=== PATIENT | male | born 1950 | race Caucasian/White ===

== ENCOUNTER 2016-07-08 07:20 | Inpatient (IN) | payer MEDICARE, MEDICAID ==
[~2016-07-08] VITALS: Ht 167.6 cm; Wt 64.2 kg
[2016-07-08] MEDS ORDERED: LABE100T2 PO (07:55)
[2016-07-08] MEDS ORDERED: PERC10TA27 PO (07:55)
[2016-07-08] MEDS ORDERED: COUM5TAB PO (07:55)
[2016-07-08] MEDS ORDERED: AMLO10 PO (07:55)
[2016-07-08] MEDS ORDERED: POLY17S PO (07:55)
[2016-07-08] MEDS ORDERED: NEUR300C PO (07:55)
[2016-07-08] MEDS ORDERED: TRAZ1TAB45 PO (07:55)
[2016-07-08] MEDS ORDERED: VITA250T3 PO (07:55)
[2016-07-08] MEDS ORDERED: PAXI30TA7 PO (07:55)
[2016-07-08] MEDS ORDERED: MULTTAB67 PO (07:55)
[2016-07-08] MEDS ORDERED: CHLORHEXIDINE GLUCONATE 2 % 1 PACK (2 CLOTHS) TOPICAL PRN (08:00)
[2016-07-08] MEDS ORDERED: LACTATED RINGER'S 1000 ML IV PRN (08:00)
[2016-07-08] MEDS ORDERED: POVIDONE IODINE 5% (ANTISEPSIS KIT) 4 APPLICATIONS EACH NARE PRN (08:00)
[2016-07-08] MEDS ORDERED: SODIUM CHLORID 0.9% 500 ML IV PRN (08:00)
[2016-07-08] MEDS ORDERED: INSULIN HUMAN REGULAR 1,000 UNITS/10 ML VIAL SQ PRN (08:00)
[2016-07-08] MEDS ORDERED: METOPROLOL TARTRATE 25 MG TAB PO PRN (08:00)
[2016-07-08 08:02] VITALS: BP 136/71; PULSE 52; RESP 16; TEMP 97.5; O2SAT 94
[2016-07-08 08:10] LABS: AUTOMATED NEUTROPHIL # 6.3 TH/MM3 (1.8-7.7); BASOPHIL # 0.1 TH/MM3 (0-0.2); BASOPHIL % 1.1 % (0.0-2.0); EOSINOPHIL # 0.5 TH/MM3 (0-0.4); EOSINOPHIL % 5.2 % (0.0-4.0); HEMATOCRIT 43.1 % (39.0-51.0); HEMO FLAGS DIFF FINAL; LYMPHOCYTE # 2.2 TH/MM3 (1.0-4.8); MEAN CELL VOLUME 90.2 FL (80.0-100.0); MEAN CORPUSCULAR HEMOGLOBIN 31.4 PG (27.0-34.0); MEAN CORPUSCULAR HGB CONC 34.9 % (32.0-36.0); MONO % 6.3 % (0.0-8.0); NEUT % 64.4 % (16.0-70.0); PLATELET COUNT 205 TH/MM3 (150-450); RED BLOOD COUNT 4.79 MIL/MM3 (4.50-5.90); RED CELL DISTRIBUTION WIDTH 12.7 % (11.6-17.2); WHITE BLOOD COUNT 9.7 TH/MM3 (4.0-11.0)
--- NOTE | 2016-07-08 08:13 | RADRPT ---
EXAM DATE/TIME: 07/08/2016 07:35 [facility] COMPARISON: No previous studies available for comparison. INDICATIONS : Evaluate for pneumothorax, pneumonia, or communicable disease. Pre-operative for left below knee revi cornelio. MEDICAL HISTORY : None. SURGICAL HISTORY : CABG. ENCOUNTER: Initial ACUITY: 1 day PAIN SCORE: 0/10 LOCATION: Bilateral chest FINDINGS: A single view of the chest demonstrates elevation right hemidiaphragm and minimal bibasilar atelectas is. Previous CABG. Heart in the upper limits of normal in size.. Osseous structures are intact. CONCLUSION: Bibasilar atelectasis and slight elevation right hemidiaphragm. Christopher Ferrell MD on July 08, 2016 at 8:11 Board Certified Radiologist. This report was verified electronically.
[2016-07-08] MEDS ORDERED: ceFAZolin 2 GM PREMIX 50 ML IV SCH (08:15)
[2016-07-08 08:21] LABS: INTERNATIONAL NORMALIZED RATIO 1.6 RATIO; PROTHROMBIN TIME - PATIENT 17.6 SEC (9.8-11.6)
[2016-07-08 08:23] LABS: APTT (PATIENT) 37.4 SEC (24.3-30.1)
[2016-07-08 08:27] LABS: BICARBONATE 27.4 MEQ/L (21.0-32.0)
[2016-07-08] MEDS ORDERED: PROPOFOL 200 MG/20 ML AMP IV ONE (12:00)
[2016-07-08] MEDS ORDERED: ONDANSETRON HCL 4 MG/2 ML VIAL IV PUSH ONE (12:00)
[2016-07-08] MEDS ORDERED: ePHEDrine/NS 25 MG/5 ML SYR IV ONE (12:00)
[2016-07-08] MEDS ORDERED: ACETAMINOPHEN 1000 MG/100 ML VIAL IV ONE (12:07)
[2016-07-08] MEDS ORDERED: DEXAMETHASONE SOD PHOS 4 MG/ML VIAL ONE (12:08)
[2016-07-08] MEDS ORDERED: FAMOTIDINE 20 MG/2 ML VIAL ONE (12:08)
[2016-07-08] MEDS ORDERED: fentaNYL CITRATE 250 MCG/5 ML AMP ONE (12:08)
[2016-07-08] MEDS ORDERED: MIDAZOLAM HCL 2 MG/2 ML VIAL ONE (12:08)
[2016-07-08] MEDS ORDERED: DO NOT ADM ANY ANTICOAGULANT DRUGS PRN (13:47)
[2016-07-08] MEDS ORDERED: *morphine SULFATE 8 MG/ML PERIprocedure ONLY ONE ×2 (14:00→14:10)
[2016-07-08] MEDS ORDERED: *HYDROmorphone PF 1 MG VIAL PERIprocedural Use ONLY ONE ×2 (14:28→15:32)
[2016-07-08] MEDS ORDERED: ONDANSETRON HCL 4 MG/2 ML VIAL IV PRN (15:45)
[2016-07-08] MEDS ORDERED: NALOXONE HCL 0.4 MG/ML AMP IV PRN (15:45)
[2016-07-08] MEDS ORDERED: Post-op Orders (for Pharmacy) MISC XX ONE (15:45)
--- NOTE | 2016-07-08 16:33 | EKG ---
Date Performed: 07/08/2016 Time Performed: 08:02:21 PTAGE: 66 years EKG: SINUS BRADYCARDIA RIGHT BUNDLE BRANCH BLOCK ABNORMAL ECG NO PREVIOUS TRACING DOCTOR: Kt Smalls Interpretating Date/Time 07/08/2016 16:32:06
[2016-07-08] MEDS ORDERED: PILL SPLITTER OTHER PRN (16:45)
[2016-07-08 17:00] VITALS: BP 136/68; PULSE 71; RESP 20; TEMP 97.3; O2SAT 95
[2016-07-08] MEDS: POLYETHYLENE GLYCOL 17 GM PKG PO SCH (17:00)
--- NOTE | 2016-07-08 18:11 | MP ---
cc: MD JULIA,GAGE DATE OF SURGERY 07/08/2016 PREOPERATIVE DIAGNOSIS Ischemia of the skin of the left BKA stump. Atrophy of the muscle of the stump, inability to wear prosthesis. POSTOPERATIVE DIAGNOSIS Ischemia of the skin of the left BKA stump. Atrophy of the muscle of the stump, inability to wear prosthesis. OPERATIVE PROCEDURE Revision of the stump, re-resection of tibia and fibula and creation of posterior flap. SURGEON MD Julia ANESTHESIA General. ESTIMATED BLOOD LOSS 100 cc. INDICATION OF PROCEDURE This pleasant gentleman presents to my office with a stump that is the result of left below-knee amputation about a year ago in another hospital. At this point the patient has near protrusion of the tibia through the anterior and superior portion of the stump, cannot wear a prosthesis and clearly muscle is atrophic and insufficient to bear the stump weight, hence the procedure. PROCEDURE IN DETAIL The patient was prepped and draped in usual fashion. Now incision made in the site of the previous incision inferiorly and then extended laterally. This allowed exposure of tibia and fibula. Laterally the incision is deepened and anteriorly to the level of tibia and then tissue over the tibia is peeled back with periosteal elevator anteriorly and laterally and then in the end inferiorly. The fibula is now exposed, same is done with fibula. The fibula is foreshortened for about 3 inches with the asphalt distributor operator and then the tibia is transected about 2 inches higher with oscillating saw, then angled. It is rasped down with bone rasp and then area irrigated saline. Now the posterior flap is created. Posterior flap is created by advancing the tissue that was inferior to the tibia previously anteriorly and then some tissue that was around the fibula medially over the tibia. First the muscle tissue is advanced medially and the tibia is covered and this is sutured in with 0 Vicryl. Now the tissue is advanced from inferiorly up and sutured fascia to fascia with a layer of deep stitches and a layer of superficial stitches using a 0 Vicryl and 2-0 Vicryl respectively. Finally, the skin is closed with 3-0 interrupted Prolene. The patient tolerated the procedure well and dressing applied. Gage CM /4:30 PM /5:55 PM MTDYakelin
[2016-07-08] MEDS: WARFARIN SOD 1 MG TAB PO SCH (18:12)
[2016-07-08] MEDS: WARFARIN SOD 5 MG TAB PO SCH (18:12)
[2016-07-08] MEDS: SODIUM CHLOR 0.9% 1000 ML INJ 1,000 ML IV SCH (18:12)
[2016-07-08] MEDS: PARoxetine HCL 20 MG TAB PO SCH (18:13)
[2016-07-08] MEDS: MULTIVITAMIN TAB PO SCH (18:13)
[2016-07-08 18:16] VITALS: O2SAT 95
[2016-07-08] MEDS: oxyCODONE/ACETAMINOPHEN 5 MG/325 MG TAB PO PRN (19:12)
[2016-07-08 20:00] VITALS: BP 137/76; PULSE 61; RESP 20; TEMP 96.4; O2SAT 95
[2016-07-08] MEDS: traZODone HCL 50 MG TAB PO SCH (20:16)
[2016-07-08] MEDS: DOCUSATE SODIUM 100 MG CAP PO SCH (20:16)
[2016-07-08] MEDS: SODIUM CHLORIDE 0.9% FLUSH 10 ML FLUSH IV FLUSH SCH (20:16)
[2016-07-08] MEDS: GABAPENTIN 300 MG CAP PO SCH (20:16)
[2016-07-08] MEDS: LABETALOL HCL 100 MG TAB PO SCH (20:16)
[2016-07-08] MEDS: ASCORBIC ACID 500 MG TAB PO SCH (20:16)
[2016-07-08] MEDS: oxyCODONE/ACETAMINOPHEN 10 MG/325 MG TAB PO SCH (22:10)
[2016-07-09] VITALS (8 sets, daily range): BP systolic 120–140; BP diastolic 64–76; PULSE 55–84; RESP 16–20; TEMP 95.9–97.8; O2SAT 93–97
[2016-07-09] MEDS: HYDROmorphone HCL PF 1 MG/ML VIAL IV PRN (01:15)
[2016-07-09] MEDS: oxyCODONE/ACETAMINOPHEN 10 MG/325 MG TAB PO SCH ×3 (05:19→20:50)
[2016-07-09 05:27] LABS: BASOPHIL % 0.3 % (0.0-2.0); HEMATOCRIT 36.5 % (39.0-51.0); HEMO FLAGS DIFF FINAL; LYMPHOCYTE # 0.8 TH/MM3 (1.0-4.8); MEAN CELL VOLUME 91.1 FL (80.0-100.0); MEAN CORPUSCULAR HGB CONC 35.1 % (32.0-36.0); NEUT % 85.7 % (16.0-70.0); PLATELET COUNT 186 TH/MM3 (150-450); RED BLOOD COUNT 4.01 MIL/MM3 (4.50-5.90); RED CELL DISTRIBUTION WIDTH 12.7 % (11.6-17.2); WHITE BLOOD COUNT 9.3 TH/MM3 (4.0-11.0)
[2016-07-09 05:40] LABS: BICARBONATE 26.7 MEQ/L (21.0-32.0); POTASSIUM 4.5 MEQ/L (3.5-5.1)
[2016-07-09] MEDS: ASCORBIC ACID 500 MG TAB PO SCH ×2 (08:14→20:33)
[2016-07-09] MEDS: DOCUSATE SODIUM 100 MG CAP PO SCH ×2 (08:14→20:33)
[2016-07-09] MEDS: LABETALOL HCL 100 MG TAB PO SCH ×2 (08:15→20:33)
[2016-07-09] MEDS: PARoxetine HCL 20 MG TAB PO SCH (08:15)
[2016-07-09] MEDS: MULTIVITAMIN TAB PO SCH (08:15)
[2016-07-09] MEDS: POLYETHYLENE GLYCOL 17 GM PKG PO SCH (08:15)
[2016-07-09] MEDS: GABAPENTIN 300 MG CAP PO SCH ×2 (08:15→20:33)
[2016-07-09] MEDS: SODIUM CHLORIDE 0.9% FLUSH 10 ML FLUSH IV FLUSH SCH ×2 (08:15→20:33)
[2016-07-09] MEDS: oxyCODONE/ACETAMINOPHEN 5 MG/325 MG TAB PO PRN ×3 (08:17→20:34)
--- NOTE | 2016-07-09 11:30 | PD.CAR.PN ---
CVT Progress Note Subjective/Hospital Course: 07/09/16 Status post revision of the left BKA stump Incision is clean and dry dressing is intact We will leave the dressing as it is for next 24-48 hours and then remove it Patient should be able to leave the hospital Monday or Monday Continue care Objective: Vital Signs Date Time Temp Pulse Resp B/P Pulse Ox O2 Delivery O2 Flow Rate FiO2 07/09/16 09:17 16 07/09/16 08:00 97.1 66 17 133/64 93 07/09/16 04:00 95.9 67 20 130/76 96 07/09/16 00:00 96.0 69 20 120/68 95 07/08/16 20:00 96.4 61 20 137/76 95 07/08/16 18:16 95 Nasal Cannula 4.00 07/08/16 17:00 97.3 71 20 136/68 95 07/08/16 15:45 67 16 145/58 96 Nasal Cannula 4 07/08/16 15:30 65 16 131/63 95 Nasal Cannula 4 07/08/16 15:15 65 16 134/71 95 Nasal Cannula 4 07/08/16 15:00 62 16 130/62 96 Nasal Cannula 4 07/08/16 14:45 66 16 133/67 94 Nasal Cannula 4 07/08/16 14:30 61 16 130/66 95 Nasal Cannula 4 07/08/16 14:15 61 16 136/69 95 Nasal Cannula 4 07/08/16 13:53 97.5 62 16 147/70 96 Simple Mask 10 Labs: Laboratory Tests Test 07/09/16 04:24 White Blood Count 9.3 TH/MM3 (4.0-11.0) Red Blood Count 4.01 MIL/MM3 (4.50-5.90) Hemoglobin 12.8 GM/DL (13.0-17.0) Hematocrit 36.5 % (39.0-51.0) Mean Corpuscular Volume 91.1 FL (80.0-100.0) Mean Corpuscular Hemoglobin 32.0 PG (27.0-34.0) Mean Corpuscular Hemoglobin 35.1 % Concent (32.0-36.0) Red Cell Distribution Width 12.7 % (11.6-17.2) Platelet Count 186 TH/MM3 (150-450) Mean Platelet Volume 6.6 FL (7.0-11.0) Neutrophils (%) (Auto) 85.7 % (16.0-70.0) Lymphocytes (%) (Auto) 9.0 % (9.0-44.0) Monocytes (%) (Auto) 5.0 % (0.0-8.0) Eosinophils (%) (Auto) 0.0 % (0.0-4.0) Basophils (%) (Auto) 0.3 % (0.0-2.0) Neutrophils # (Auto) 8.0 TH/MM3 (1.8-7.7) Lymphocytes # (Auto) 0.8 TH/MM3 (1.0-4.8) Monocytes # (Auto) 0.5 TH/MM3 (0-0.9) Eosinophils # (Auto) 0.0 TH/MM3 (0-0.4) Basophils # (Auto) 0.0 TH/MM3 (0-0.2) CBC Comment DIFF FINAL Differential Comment Sodium Level 143 MEQ/L (136-145) Potassium Level 4.5 MEQ/L (3.5-5.1) Chloride Level 108 MEQ/L (98-107) Carbon Dioxide Level 26.7 MEQ/L (21.0-32.0) Anion Gap 8 MEQ/L (5-15) Blood Urea Nitrogen 19 MG/DL (7-18) Creatinine 1.18 MG/DL (0.60-1.30) Estimat Glomerular Filtration 62 ML/MIN (>89) Rate Random Glucose 157 MG/DL (74-106) Calcium Level 8.7 MG/DL (8.5-10.1) Result Diagram: 07/09/16 0424 07/09/16 0424 Semaj Dumont MD July 09, 2016 11:30
[2016-07-09] MEDS: SODIUM CHLOR 0.9% 1000 ML INJ 1,000 ML IV SCH ×2 (12:04→20:36)
[2016-07-09] MEDS: WARFARIN SOD 1 MG TAB PO SCH (17:39)
[2016-07-09] MEDS: WARFARIN SOD 5 MG TAB PO SCH (17:39)
[2016-07-09] MEDS: traZODone HCL 50 MG TAB PO SCH (20:34)
[2016-07-10] VITALS: BP 131/64; PULSE 53; RESP 20; TEMP 96.9; O2SAT 97
[2016-07-10] MEDS: oxyCODONE/ACETAMINOPHEN 5 MG/325 MG TAB PO PRN ×2 (04:28→09:26)
[2016-07-10] MEDS: oxyCODONE/ACETAMINOPHEN 10 MG/325 MG TAB PO SCH ×3 (05:41→22:54)
[2016-07-10 08:00] VITALS: BP 132/66; PULSE 51; RESP 17; TEMP 96.1; O2SAT 96
[2016-07-10] MEDS: SODIUM CHLORIDE 0.9% FLUSH 10 ML FLUSH IV FLUSH SCH ×2 (09:00→19:59)
[2016-07-10] MEDS: PARoxetine HCL 20 MG TAB PO SCH (09:15)
[2016-07-10] MEDS: POLYETHYLENE GLYCOL 17 GM PKG PO SCH (09:15)
[2016-07-10] MEDS: DOCUSATE SODIUM 100 MG CAP PO SCH ×2 (09:15→19:59)
[2016-07-10] MEDS: LABETALOL HCL 100 MG TAB PO SCH ×2 (09:15→20:00)
[2016-07-10] MEDS: MULTIVITAMIN TAB PO SCH (09:15)
[2016-07-10] MEDS: ASCORBIC ACID 500 MG TAB PO SCH ×2 (09:15→20:00)
[2016-07-10] MEDS: GABAPENTIN 300 MG CAP PO SCH ×2 (09:15→20:00)
[2016-07-10 10:04] VITALS: O2SAT 96
[2016-07-10 12:00] VITALS: BP 112/57; PULSE 50; RESP 17; TEMP 96.3; O2SAT 94
[2016-07-10] MEDS: SODIUM CHLORIDE 0.9% FLUSH 10 ML FLUSH IV FLUSH PRN ×2 (13:17→18:01)
[2016-07-10] MEDS: HYDROmorphone HCL PF 1 MG/ML VIAL IV PRN ×2 (13:17→17:59)
[2016-07-10 16:00] VITALS: BP 118/57; PULSE 50; RESP 17; TEMP 96.4; O2SAT 95
[2016-07-10] MEDS: WARFARIN SOD 5 MG TAB PO SCH (17:22)
[2016-07-10] MEDS: WARFARIN SOD 1 MG TAB PO SCH (17:22)
[2016-07-10] MEDS: SODIUM CHLOR 0.9% 1000 ML INJ 1,000 ML IV SCH (18:01)
[2016-07-10 20:00] VITALS: BP 115/59; PULSE 50; RESP 18; TEMP 96; O2SAT 93
[2016-07-10] MEDS: traZODone HCL 50 MG TAB PO SCH (20:00)
[2016-07-11] VITALS (7 sets, daily range): BP systolic 113–128; BP diastolic 58–62; PULSE 48–56; RESP 16–18; TEMP 95.9–97.1; O2SAT 95–97
[2016-07-11] MEDS: oxyCODONE/ACETAMINOPHEN 10 MG/325 MG TAB PO SCH ×3 (04:58→20:33)
[2016-07-11] MEDS: SODIUM CHLORIDE 0.9% FLUSH 10 ML FLUSH IV FLUSH SCH ×2 (09:00→20:26)
[2016-07-11] MEDS: POLYETHYLENE GLYCOL 17 GM PKG PO SCH (09:37)
[2016-07-11] MEDS: MULTIVITAMIN TAB PO SCH (09:37)
[2016-07-11] MEDS: DOCUSATE SODIUM 100 MG CAP PO SCH ×2 (09:37→20:29)
[2016-07-11] MEDS: LABETALOL HCL 100 MG TAB PO SCH ×3 (09:37→21:00)
[2016-07-11] MEDS: ASCORBIC ACID 500 MG TAB PO SCH ×2 (09:37→20:33)
[2016-07-11] MEDS: oxyCODONE/ACETAMINOPHEN 5 MG/325 MG TAB PO PRN ×2 (09:37→17:34)
[2016-07-11] MEDS: GABAPENTIN 300 MG CAP PO SCH ×2 (09:37→20:31)
[2016-07-11] MEDS: PARoxetine HCL 20 MG TAB PO SCH (09:37)
[2016-07-11] MEDS: SODIUM CHLOR 0.9% 1000 ML INJ 1,000 ML IV SCH (09:44)
[2016-07-11] MEDS: HYDROmorphone HCL PF 1 MG/ML VIAL IV PRN ×2 (11:22→19:49)
[2016-07-11] MEDS: SODIUM CHLORIDE 0.9% FLUSH 10 ML FLUSH IV FLUSH PRN (11:22)
--- NOTE | 2016-07-11 12:19 | PD.CAR.PN ---
CVT Progress Note Subjective/Hospital Course: 07/09/16 Status post revision of the left BKA stump Incision is clean and dry dressing is intact We will leave the dressing as it is for next 24-48 hours and then remove it Patient should be able to leave the hospital Monday or Monday Continue care 07/11/16 Incision clean dry Well healing Can transfer to rehab any time No more intrahospital care needed Objective: Vital Signs Date Time Temp Pulse Resp B/P Pulse Ox O2 Delivery O2 Flow Rate FiO2 07/11/16 10:37 16 07/11/16 08:00 96.6 48 16 128/61 96 07/11/16 00:00 97.1 56 18 122/62 95 07/10/16 20:00 96.0 50 18 115/59 93 07/10/16 18:11 Nasal Cannula 3.00 07/10/16 16:00 96.4 50 17 118/57 95 Result Diagram: 07/09/16 0424 07/09/16 0424 Semaj Dumont MD July 11, 2016 12:19
[2016-07-11] MEDS: WARFARIN SOD 5 MG TAB PO SCH (14:51)
[2016-07-11] MEDS: WARFARIN SOD 1 MG TAB PO SCH (14:51)
[2016-07-11] MEDS: traZODone HCL 50 MG TAB PO SCH (20:31)
[2016-07-12] VITALS: BP 117/58; PULSE 50; RESP 18; TEMP 96.9; O2SAT 97
[2016-07-12] MEDS: oxyCODONE/ACETAMINOPHEN 5 MG/325 MG TAB PO PRN ×3 (01:51→18:41)
[2016-07-12] MEDS: SODIUM CHLOR 0.9% 1000 ML INJ 1,000 ML IV SCH ×2 (03:36→20:00)
[2016-07-12] MEDS: HYDROmorphone HCL PF 1 MG/ML VIAL IV PRN (03:36)
[2016-07-12] MEDS: oxyCODONE/ACETAMINOPHEN 10 MG/325 MG TAB PO SCH ×2 (05:52→15:02)
[2016-07-12 08:00] VITALS: BP 111/56; PULSE 51; RESP 17; TEMP 97.6; O2SAT 94
[2016-07-12] MEDS: ASCORBIC ACID 500 MG TAB PO SCH (08:22)
[2016-07-12] MEDS: GABAPENTIN 300 MG CAP PO SCH (08:22)
[2016-07-12] MEDS: DOCUSATE SODIUM 100 MG CAP PO SCH (08:22)
[2016-07-12] MEDS: SODIUM CHLORIDE 0.9% FLUSH 10 ML FLUSH IV FLUSH SCH (08:23)
[2016-07-12] MEDS: MULTIVITAMIN TAB PO SCH (08:23)
[2016-07-12] MEDS: PARoxetine HCL 20 MG TAB PO SCH (08:23)
[2016-07-12] MEDS: POLYETHYLENE GLYCOL 17 GM PKG PO SCH (08:23)
[2016-07-12] MEDS: LABETALOL HCL 100 MG TAB PO SCH (09:00)
[2016-07-12 12:00] VITALS: BP 133/66; PULSE 51; RESP 18; TEMP 97.4; O2SAT 96
--- NOTE | 2016-07-12 12:45 | PD.CAR.PN ---
CVT Progress Note Subjective/Hospital Course: 07/09/16 Status post revision of the left BKA stump Incision is clean and dry dressing is intact We will leave the dressing as it is for next 24-48 hours and then remove it Patient should be able to leave the hospital Monday or Monday Continue care 07/11/16 Incision clean dry Well healing Can transfer to rehab any time No more intrahospital care needed 07/12/16 Well healing No drainage DC to rehab FU with me 3 weeks in the office Objective: Vital Signs Date Time Temp Pulse Resp B/P Pulse Ox O2 Delivery O2 Flow Rate FiO2 07/12/16 08:00 97.6 51 17 111/56 94 07/12/16 00:00 96.9 50 18 117/58 97 07/11/16 20:00 97.0 50 18 113/59 95 07/11/16 19:53 95 Nasal Cannula 3.00 07/11/16 16:00 96.3 48 17 121/58 96 07/11/16 15:51 16 Result Diagram: 07/09/16 0424 07/09/16 0424 Semaj Dumont MD July 12, 2016 12:45
[2016-07-12 12:49] VITALS: O2SAT 96
[2016-07-12] MEDS ORDERED: OXYC1TAB36 PO (15:27)
[2016-07-12 16:00] VITALS: BP 139/64; PULSE 58; RESP 17; TEMP 97.6; O2SAT 97
[2016-07-12] MEDS: WARFARIN SOD 1 MG TAB PO SCH (16:02)
[2016-07-12] MEDS: WARFARIN SOD 5 MG TAB PO SCH (16:03)
--- NOTE | 2016-07-27 18:25 | MH ---
cc: SEMAJ EMMANUEL MD DATE OF ADMISSION 07/08/2016 HISTORY OF THE PRESENT ILLNESS This pleasant gentleman had a BKA amputation at some point in the distant in another institution. The patient comes to my office with atrophy of the muscle and essentially ulceration over the tibial stump which is almost protruding through the skin at this point. There is a very thin amount of tissue covering. This patient is unable to walk on this. The patient is now admitted for revision of the stump in order to allow for walking. PAST MEDICAL AND SURGICAL HISTORY Is that of: 1. Diabetes mellitus. 2. Hypertension. MEDICATIONS The patient is on the number medications, can be found in the record. PHYSICAL EXAMINATION GENERAL: Reveals a pleasant 66-year-old gentleman in no acute distress. HEENT: Normocephalic. No trauma to the head. Pupils equally reactive. Extraocular muscles intact. NECK: Supple. Bilateral carotid pulses. No bruits. CHEST: Bilateral breath sounds. HEART: Regular rhythm. ABDOMEN: Soft. Active bowel sounds. EXTREMITIES: Right leg is normal. On the left side the patient has left below-knee amputation with nearly protruding bone being covered only by a small amount of tissue. NEUROLOGIC: The patient is intact. The patient has a plan to be taken to the operating room today for revision of the stump. It should be noted that this H&P was performed on short-form prior to surgery as per regulations for the patient could not be taken to the operating room without it. Yet this short form was lost and that is why I am re-dictating history and physical. Semaj WISE/ISABELLE /3:45 PM /6:15 PM
--- NOTE | 2016-07-28 06:37 | MD ---
cc: ESMAJ EMMANUEL MD ADMISSION DATE: 07/08/2016 DISCHARGE DATE: 07/12/2016 HISTORY OF PRESENT DISEASE This 66-year-old male was admitted for revision of the left BKA stump. HOSPITAL COURSE He underwent successful revision of the same in the operating room and postoperatively did well. The incision is healing nicely. Dressing has been removed 48 hours after the procedure and the patient is now made discharged with instructions to follow up in my office in about three weeks for stitch removal with a clean well-healing stump without ischemia. Semaj WISE/ZAKIA /3:48 PM /6:36 AM
== END 2016-07-12 21:23 | DRG 476 ==
LOC: HSDC 07:20 → HSDI 15:38 → N07B 15:46
PROVIDERS: ADMIT Surgery; ATTEND Surgery
PROC: 0Y6J0Z3 Detachment at Left Lower Leg, Low, Open Approach (ICD-10-PCS; principal; 2016-07-08 12:29)
DX: T87.89 Other complications of amputation stump (principal); I25.10 Atherosclerotic heart disease of native coronary artery without angina pectoris; I99.8 Other disorder of circulatory system; M62.58 Muscle wasting and atrophy, not elsewhere classified, other site; I73.9 Peripheral vascular disease, unspecified; Z95.1 Presence of aortocoronary bypass graft; Z87.891 Personal history of nicotine dependence
CPT/HCPCS: 71010; 80048; 85025; 85610; 85730; 93005; 94150; J0131; J0690; J1100; J1170; J2250; J2270; J2405; J3010; J7030

== ENCOUNTER 2017-02-18 11:08 | Emergency (ER) | payer MEDICARE, MEDICAID ==
[~2017-02-18] VITALS: Ht 167.6 cm; Wt 78.0 kg
[~2017-02-18 11:08] MED LIST: AMLO10 PO; COUM5TAB PO; LABE100T2 PO; MULTTAB67 PO; NEUR300C PO; OXYC1TAB36 PO; PAXI30TA7 PO; PERC10TA27 PO; POLY17S PO; TRAZ1TAB14 PO; VITA250T3 PO
[2017-02-18 11:35] VITALS: BP 145/67; PULSE 59; RESP 19; TEMP 98.2; O2SAT 89
[2017-02-18] MEDS ORDERED: PHYT10P SQ (11:49)
[2017-02-18] MEDS ORDERED: TRAZ50TA12 PO (11:49)
[2017-02-18] MEDS ORDERED: WARF-20 PO (11:49)
[2017-02-18] MEDS ORDERED: PERC10TA27 PO (11:49)
[2017-02-18] MEDS ORDERED: PARO20TA2 PO (11:49)
[2017-02-18 12:12] VITALS: RESP 18; O2SAT 94
[2017-02-18 12:22] LABS: AUTOMATED NEUTROPHIL # 7.5 TH/MM3 (1.8-7.7); BASOPHIL # 0.1 TH/MM3 (0-0.2); BASOPHIL % 0.8 % (0.0-2.0); EOSINOPHIL # 0.5 TH/MM3 (0-0.4); EOSINOPHIL % 5.2 % (0.0-4.0); HEMATOCRIT 41.1 % (39.0-51.0); LYMPH % 14.7 % (9.0-44.0); LYMPHOCYTE # 1.5 TH/MM3 (1.0-4.8); MEAN CELL VOLUME 91.4 FL (80.0-100.0); MEAN PLATELET VOLUME 6.2 FL (7.0-11.0); MONO % 7.1 % (0.0-8.0); MONOCYTE # 0.7 TH/MM3 (0-0.9); NEUT % 72.2 % (16.0-70.0); PLATELET COUNT 247 TH/MM3 (150-450); RED CELL DISTRIBUTION WIDTH 13.3 % (11.6-17.2); WHITE BLOOD COUNT 10.4 TH/MM3 (4.0-11.0)
--- NOTE | 2017-02-18 12:26 | PD ---
HPI Chief Complaint: Abnormal Results Time Seen by Provider: 11:42 Travel History International Travel<30 days: No Contact w/Intl Traveler<30days: No Traveled to known affect area: No History of Present Illness HPI 67-year-old male that presents to the ED for evaluation of supratherapeutic Coumadin level. Patient was sent from a left secondary to this. Per group home report patient apparently had a level done yesterday was 3.3. Today they checked it again and it was 11. They withheld the Coumadin yesterday and today and they gave him vitamin K and a run other lab but they sent him here before the the lab results came back. Patient states that he's been coughing up some brown sputum and he believes that his been having some blood in it. Per patient is only started today. He denies any chest pain. Per patient in the facility where he stays that his been a lot of sick people with cough like symptoms. He states that the blood is minimal and more like a droplets. He denies any fevers chills or sweats. He states having congestion. Per patient he believes is coming from the nose. He denies any nosebleed however. He denies any changes in bowel movement or discoloration of the blood to black or breath. He denies any urinary symptoms. 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 He denies any abdominal pain. No weakness. No numbness, tingling, weakness. He has no pain. PFSH Past Medical History Cancer: No Cardiovascular Problems: Yes (AAA) COPD: Yes Diabetes: No Diminished Hearing: No Endocrine: No GERD: Yes Genitourinary: No Hepatitis: No Hiatal Hernia: No Hypertension: Yes Immune Disorder: No Medical other: Yes (DVT) Musculoskeletal: Yes (BKA) Neurologic: No Psychiatric: No Reproductive: No Respiratory: Yes Thyroid Disease: No Influenza Vaccination: Yes Past Surgical History Abdominal Surgery: Yes AICD: No Cardiac Surgery: Yes (cabg 2010) Coronary Artery Bypass Graft: Yes (2010) Ear Surgery: No Endocrine Surgery: No Eye Surgery: No Genitourinary Surgery: No Joint Replacement: No Oral Surgery: No Pacemaker: No Thoracic Surgery: No Other Surgery: Yes Social History Alcohol Use: No Tobacco Use: No Substance Use: No Allergies-Medications (Allergen,Severity, Reaction): Coded Allergies: codeine (Unverified Allergy, Intermediate, 09/27/16) Reported Meds & Prescriptions Reported Meds & Active Scripts Active Tessalon Perles (Benzonatate) 100 Mg Cap 100 Mg PO TID PRN Azithromycin 250 Mg Tab 250 Mg PO DIRECTED Take 2 tabs (500 mg) on day 1 then 1 tab daily x 4 days. Reported Vitamin K1 Inj (Phytonadione) 10 Mg/Ml Inj 10 Mg SQ ONCE Percocet (Oxycodone-Acetaminophen) 10-325 mg Tab 1 Tab PO Q4H PRN Trazodone (Trazodone HCl) 50 Mg Tab 50 Mg PO HS Paroxetine (Paroxetine HCl) 20 Mg Tab 20 Mg PO DAILY Warfarin 4 Mg Tab 4.5 Mg PO DAILY Vitamin C (Ascorbic Acid) 250 Mg Tab 500 Mg PO BID Labetalol (Labetalol HCl) 100 Mg Tab 100 Mg PO BID Percocet (Oxycodone-Acetaminophen) 10-325 mg Tab 1 Tab PO Q8HR Norvasc (Amlodipine Besylate) 10 Mg Tab 10 Mg PO DAILY Neurontin (Gabapentin) 300 Mg Cap 300 Mg PO BID Multiple Vitamin 1 Tab 1 Tab PO DAILY Polyethylene Glycol 3350 Powder (Polyethylene Glycol) 17 Gm Pow 17 Gm PO DAILY Review of Systems Except as stated in HPI: all other systems reviewed are Neg Physical Exam Narrative GENERAL: SKIN: Warm and dry. HEAD: Atraumatic. Normocephalic. EYES: Pupils equal and round. No scleral icterus. No injection or drainage. ENT: No nasal bleeding or discharge. Mucous membranes pink and moist. Tongue is midline. No uvula deviation. Nostrils are patent with no sign of epistaxis. TMs are clear with no sign of infection. NECK: Trachea midline. No JVD. CARDIOVASCULAR: Regular rate and rhythm. No murmurs, S3, S4. RESPIRATORY: No accessory muscle use. Clear to auscultation. Breath sounds equal bilaterally. GASTROINTESTINAL: Abdomen soft, non-tender, nondistended. Hepatic and splenic margins not palpable. MUSCULOSKELETAL: Extremities without clubbing, cyanosis, or edema. No obvious deformities. Full range of motion of the upper and lower extremities bilaterally. 2+ pulses bilaterally. Above the knee amputation on left leg. NEUROLOGICAL: Awake and alert. No obvious cranial nerve deficits. Motor grossly within normal limits. Five out of 5 muscle strength in the arms and legs. Normal speech. PSYCHIATRIC: Appropriate mood and affect; insight and judgment normal. Data Data Last Documented VS Vital Signs Date Time Temp Pulse Resp B/P (MAP) Pulse Ox O2 Delivery O2 Flow Rate FiO2 02/18/17 12:12 18 94 Nasal Cannula 2.00 02/18/17 11:35 98.2 59 145/67 (93) Orders Orders Complete Blood Count With Diff (02/18/17 11:47) Comprehensive Metabolic Panel (02/18/17 11:47) Prothrombin Time / Inr (Pt) (02/18/17 11:47) Act Partial Throm Time (Ptt) (02/18/17 11:47) Magnesium (Mg) (02/18/17 11:47) Chest, Single Ap (02/18/17 11:47) Iv Access Insert/Monitor (02/18/17 11:47) Ecg Monitoring (02/18/17 11:47) Oximetry (02/18/17 11:47) Type And Screen (02/18/17 11:47) Influenzae A/B Antigen (02/18/17 11:47) Ceftriaxone Inj (Rocephin Inj) (02/18/17 13:00) Labs Laboratory Tests Test 02/18/17 12:08 White Blood Count 10.4 TH/MM3 Red Blood Count 4.50 MIL/MM3 Hemoglobin 14.0 GM/DL Hematocrit 41.1 % Mean Corpuscular Volume 91.4 FL Mean Corpuscular Hemoglobin 31.0 PG Mean Corpuscular Hemoglobin Concent 34.0 % Red Cell Distribution Width 13.3 % Platelet Count 247 TH/MM3 Mean Platelet Volume 6.2 FL Neutrophils (%) (Auto) 72.2 % Lymphocytes (%) (Auto) 14.7 % Monocytes (%) (Auto) 7.1 % Eosinophils (%) (Auto) 5.2 % Basophils (%) (Auto) 0.8 % Neutrophils # (Auto) 7.5 TH/MM3 Lymphocytes # (Auto) 1.5 TH/MM3 Monocytes # (Auto) 0.7 TH/MM3 Eosinophils # (Auto) 0.5 TH/MM3 Basophils # (Auto) 0.1 TH/MM3 CBC Comment DIFF FINAL Differential Comment Prothrombin Time 19.9 SEC Prothromb Time International Ratio 2.0 RATIO Activated Partial Thromboplast Time 44.2 SEC Blood Urea Nitrogen 20 MG/DL Creatinine 1.30 MG/DL Random Glucose 104 MG/DL Total Protein 8.6 GM/DL Albumin 3.4 GM/DL Calcium Level 8.8 MG/DL Magnesium Level 2.4 MG/DL Alkaline Phosphatase 83 U/L Aspartate Amino Transf (AST/SGOT) 10 U/L Alanine Aminotransferase (ALT/SGPT) 16 U/L Total Bilirubin 0.5 MG/DL Sodium Level 141 MEQ/L Potassium Level 3.8 MEQ/L Chloride Level 106 MEQ/L Carbon Dioxide Level 27.8 MEQ/L Anion Gap 7 MEQ/L Estimat Glomerular Filtration Rate 55 ML/MIN MDM Medical Decision Making Medical Screen Exam Complete: Yes Emergency Medical Condition: Yes Medical Record Reviewed: Yes Interpretation(s) CBC & BMP Diagram 02/18/17 12:08 Total Protein 8.6 H, Albumin 3.4, Calcium Level 8.8, Magnesium Level 2.4, Alkaline Phosphatase 83, Aspartate Amino Transf (AST/SGOT) 10 L, Alanine Aminotransferase (ALT/SGPT) 16, Total Bilirubin 0.5 coags show INR of 2 Last Impressions Chest X-Ray 02/18/17 1147 Signed Impressions: Service Date/Time: Monday, February 18, 2017 12:05 - CONCLUSION: Bibasilar patchiness consistent with atelectasis and/or infiltrates. Holger Bell MD Differential Diagnosis Bronchitis versus pneumonia versus bleeding versus Coumadin elevated level Narrative Course 67-year-old male that presents to the ED for evaluation of coughing blood and supratherapeutic Coumadin level. Labs and imaging were ordered. Patient's Coumadin level here was 2.0. Patient apparently had a blood test that showed that he had an 11 point Coumadin level. Patient had a 3.3 level yesterday. Patient was given vitamin K but unlikely this brought down the level so fast. I do believe that this was the area from the lab done today. Patient is currently in no acute distress and is not actively bleeding. Chest x-ray show what appears to be possible pneumonia. Patient is not anemic. Patient's blood in sputum appears to be minimal likely from his coughing. He does state that there is multiple people coughing at the facility where he stays. I discussed this in my attending Dr. Smallwood who is in agreement the patient can go home. Patient was given ceftriaxone IV here. Patient will be sent home with prescription for azithromycin and Tessalon Perles. Told to follow closely with PCP. See ED worsening symptoms. Patient can resume his Coumadin today. Diagnosis Primary Impression: Pneumonia Qualified Codes: J18.9 - Pneumonia, unspecified organism Patient Instructions: General Instructions Additional Instructions: Motrin and Tylenol for pain and fever. You can use [id number] antihistamine as well as well as Mucinex as needed for runny nose and congestion. Cough drops for cough as needed. Drink plenty of fluids. Follow-up with PCP. See ED for worsening symptoms. Med/Other Pt SpecificInfo: Prescription(s) given Scripts Benzonatate (Tessalon Perles) 100 Mg Cap 100 MG PO TID Y for COUGH, #20 CAP 0 Refills Prov: Felix Smallwood MD 02/18/17 Azithromycin (Azithromycin) 250 Mg Tab 250 MG PO DIRECTED for Infection, #6 TAB 0 Refills Take 2 tabs (500 mg) on day 1 then 1 tab daily x 4 days. Prov: Felix Smallwood MD 02/18/17 Disposition: 01 DISCHARGE HOME Condition: Stable Dick Taveras Feb 18, 2017 12:26
[2017-02-18 12:31] LABS: PROTHROMBIN TIME - PATIENT 19.9 SEC (9.8-11.6)
[2017-02-18 12:37] LABS: ALBUMIN 3.4 GM/DL (3.4-5.0); ALT (GPT) 16 U/L (12-78); AST (GOT) 10 U/L (15-37); BICARBONATE 27.8 MEQ/L (21.0-32.0); BLOOD UREA NITROGEN 20 MG/DL (7-18); CALCIUM 8.8 MG/DL (8.5-10.1); CHLORIDE 106 MEQ/L (98-107); GLOMERULAR FILTRATION RATE 55 ML/MIN (>89); GLUCOSE,RANDOM 104 MG/DL (74-106); MAGNESIUM 2.4 MG/DL (1.5-2.5); SODIUM (NA) 141 MEQ/L (136-145)
--- NOTE | 2017-02-18 12:38 | RADRPT ---
EXAM DATE/TIME: 02/18/2017 12:05 [facility] COMPARISON: CHEST SINGLE AP, July 08, 2016, 7:35. INDICATIONS : Cough and shortness of breath and coughing up blood. MEDICAL HISTORY : None. SURGICAL HISTORY : CABG. ENCOUNTER: Initial ACUITY: 3 days PAIN SCORE: 0/10 LOCATION: chest FINDINGS: Bibasilar patchiness is noted consistent with atelectasis and/or infiltrates. Median sternotomy wires are noted status post cardiac surgery. The heart is stable. Hardware is noted within the left humeru s. CONCLUSION: Bibasilar patchiness consistent with atelectasis and/or infiltrates. Holger Bell MD on February 18, 2017 at 12:35 Board Certified Radiologist. This report was verified electronically.
[2017-02-18 12:39] LABS: ALKALINE PHOSPHATASE 83 U/L (45-117); TOTAL BILIRUBIN ADULT 0.5 MG/DL (0.2-1.0); TOTAL PROTEIN 8.6 GM/DL (6.4-8.2)
[2017-02-18] MEDS ORDERED: cefTRIAXone INJ 1,000 MG in SODIUM CHLORIDE 0.9% INJ 100 ML IV ONE (13:00)
[2017-02-18] MEDS ORDERED: BENZ100 PO (13:05)
[2017-02-18] MEDS ORDERED: AZIT250T3 PO (13:05)
[2017-02-18 14:53] VITALS: BP 138/70; PULSE 62; RESP 19; O2SAT 94
== END 2017-02-18 16:34 | disposition home or self-care (01) ==
LOC: NEPD 11:08 → NEPC 16:34
DX: J18.9 Pneumonia, unspecified organism (principal); J44.9 Chronic obstructive pulmonary disease, unspecified; K21.9 Gastro-esophageal reflux disease without esophagitis; I10 Essential (primary) hypertension; Z86.718 Personal history of other venous thrombosis and embolism; Z79.01 Long term (current) use of anticoagulants; Z89.519 Acquired absence of unspecified leg below knee; Z79.899 Other long term (current) drug therapy; Z88.5 Allergy status to narcotic agent
CPT/HCPCS: 71045; 80053; 83735; 85025; 85610; 85730; 86850; 86900; 86901; 87804; 96365; 99284; J0696

== ENCOUNTER 2017-09-25 19:36 | Inpatient (IN) ==
--- NOTE | 2017-09-25 20:40 | ED ---
HPI General Chief complaint: Extremity Problem,Nontraumatic Stated complaint: Leg Pain Time Seen by Provider: 09/25/17 19:54 Source: patient Mode of arrival: ambulatory Limitations: no limitations History of Present Illness HPI Narrative: 67-year-old white male presents from the [facility] for evaluation of a right lower extremity arterial occlusion. Patient has a history of aortic aneurysm repair, left below the knee amputation, DVT, hypertension, hypercholesterolemia, GERD, COPD, chronic constipation, anemia who presents after having a one-week of right lower leg redness, swelling and pain. He had a duplex lower extremity arterial Doppler performed showing no flow from the femoral artery stent through the popliteal artery. While there is satisfactory flow in the common femoral artery no flow is seen throughout the femoral artery and the popliteal artery and there is significant compromise monophasic flow in the lower leg. Patient denies any numbness or tingling. Pain is moderate. Worse with movement and palpation. He states that is too uncomfortable to bear weight and transfer. Patient denies any chest pain or shortness of breath. No nausea or vomiting. He has been eating and drinking normally. Per the record the patient takes Xarelto. Related Data Home Medications Medication Instructions Recorded Confirmed Norvasc 10 mg PO DAILY 09/25/17 09/25/17 atorvastatin 10 mg PO DAILY 09/25/17 09/25/17 cephalexin [Keflex] 500 mg PO Q12H 09/25/17 09/25/17 gabapentin [Neurontin] 300 mg PO BID 09/25/17 09/25/17 labetalol 100 mg PO BID 09/25/17 09/25/17 loratadine 10 mg PO DAILY 09/25/17 09/25/17 paroxetine HCl [Paxil] 30 mg PO DAILY 09/25/17 09/25/17 rivaroxaban [Xarelto] 20 mg PO DAILY 09/25/17 09/25/17 trazodone 100 mg PO DAILY 09/25/17 09/25/17 Previous Rx's Medication Instructions Recorded doxycycline hyclate 100 mg PO BID #28 cap 09/27/17 oxycodone-acetaminophen [Percocet] 1 tab PO Q4H PRN #18 tab 09/27/17 Allergies Allergy/AdvReac Type Severity Reaction Status Date / Time codeine Allergy Intermediate Unverified 09/27/16 12:58 Review of Systems ROS: all other systems reviewed are negative [facility] Medical History Medical History Abdominal aortic aneurysm (Acute) Adjustment disorder (Acute) COPD (chronic obstructive pulmonary disease) (Acute) Complete below knee amputation of left lower extremity (Acute) DVT (deep venous thrombosis) (Acute) Depression (Acute) GERD (gastroesophageal reflux disease) (Acute) Hypertension (Acute) Family History Family History Other Family history normal Social History Social History Substance History: No History of Abuse Second Hand Smoke Exposure: No Smoking Status: Former smoker How Often Do You Have a Drink Containing Alcohol: Never Recent Travel in [facility] within the Last 8 Weeks: No Recent Out of Country Travel within the Last 8 Weeks: No Immunization History Tetanus Immunization: Unsure Hx Influenza Vaccine This Season: Yes Exam Narrative Exam Narrative: GENERAL: Well-developed, well-nourished in no apparent distress. Nontoxic appearing. HEAD: Normocephalic, atraumatic. EYES: Pupils equal round and reactive. Extraocular motions intact. No scleral icterus. No injection or drainage. ENT: Nose clear. Throat without erythema, tonsillar hypertrophy or exudate. Uvula midline. Airway patent. NECK: Trachea midline. Supple, nontender, moves head freely. No central bony tenderness or spasm. CARDIOVASCULAR: Regular rate and rhythm without murmurs, gallops, or rubs. RESPIRATORY: Clear to auscultation. Breath sounds equal bilaterally. No wheezes , rales, or rhonchi. GASTROINTESTINAL: Abdomen soft, non-tender, nondistended. No hepato-splenomegaly , or palpable masses. No guarding. EXTREMITIES: Left below the knee amputation stump looks well. The right lower extremity has erythema from the mid thigh down with a few patches in the lower leg. His right leg is mildly edematous particularly in the ankle and foot. He complains of pain throughout the leg to palpation more so on the medial aspect than lateral. There is mild warmth. Patient has no palpable dorsalis pedis pulse. Pencil Doppler reveals no anterior popliteal pulse. Patient has a fair posterior tibialis pulse. BACK: Nontender without deformity. No flank tenderness. NEUROLOGICAL: Awake, alert and oriented x 3 .Cranial nerves grossly intact. Motor and sensory grossly within normal limits. Normal speech. Course Initial Documented Vital Signs Temperature 98.6 F 09/25/17 19:54 Pulse Rate 65 09/25/17 19:54 Respiratory Rate 20 09/25/17 19:54 Blood Pressure 141/67 H 09/25/17 19:54 Pulse Oximetry 93 L 09/25/17 19:54 Last Documented Vital Signs Temperature 98.8 F 09/27/17 12:00 Pulse Rate 65 09/27/17 12:00 Respiratory Rate 18 09/27/17 12:00 Blood Pressure 106/55 L 09/27/17 12:00 Pulse Oximetry 94 L 09/27/17 12:00 Medical Decision Making MDM Narrative Medical decision making narrative: IV access is obtained. Patient was placed on monitor, O2, routine laboratory tests including CBC, chemistry, coags, CTA of the right lower leg with runoff. EKG: Sinus rhythm, right bundle branch block, nonspecific ST-T wave changes. Ventricular rate of 61. I reviewed the patient's laboratory testing, CT scan, and have discussed the case with Dr. Severino. I believe the patient does have arterial occlusion but he has developed collaterals circulation. His leg is warm and not mottled. I am able to pencil Doppler a posterior tibialis pulse. I do not believe the vascular surgeon needs to see the patient this evening. I believe the patient can be admitted to the medical service with a consult in the morning to Dr. Alvarado who has operated on this individual in the past. I have covered him with antibiotics (Ancef). He may have a component of cellulitis. This has been relayed to Dr. Severino. She will evaluate the patient. Patient will be admitted to the medicine service. With consults to Dr. Alvarado. Differential Diagnosis Differential Diagnosis: Acute arterial occlusion, chronic arterial occlusion, DVT, PE, cellulitis Lab Data Result diagrams: 09/27/17 07:08 09/27/17 07:08 Lab Results 09/25/17 09/25/17 09/25/17 Range/Units 20:53 20:53 20:53 WBC 11.2 H (4.0-11.0) th/mm3 RBC 4.19 L (4.50-5.90) mil/mm3 Hgb 13.7 (13.0-17.0) gm/dL Hct 38.5 L (39.0-51.0) % MCV 91.7 (80.0-100.0) fL MCH 32.7 (27.0-34.0) pg MCHC 35.6 (32.0-36.0) % RDW 13.1 (11.6-17.2) % Plt Count 211 (150-450) th/mm3 MPV 7.0 (7.0-11.0) fL Neut % (Auto) 70.5 H (16.0-70.0) % Lymph % (Auto) 14.8 (9.0-44.0) % [place] % (Auto) 7.3 (0.0-8.0) % Eos % (Auto) 6.8 H (0.0-4.0) % Baso % (Auto) 0.6 (0.0-2.0) % Neut # (Auto) 7.9 H (1.8-7.7) th/mm3 Lymph # (Auto) 1.7 (1.0-4.8) th/mm3 [place] # (Auto) 0.8 (0.0-0.9) th/mm3 Eos # (Auto) 0.8 H (0.0-0.4) th/mm3 Baso # (Auto) 0.1 (0.0-0.2) th/mm3 WBC Differential . Differential Comment Auto diff final PT 15.9 H (9.8-11.6) sec INR 1.6 Ratio APTT 53.7 H (24.3-30.1) sec Sodium 139 (136-145) meq/L Potassium 3.7 (3.5-5.1) meq/L Chloride 104 (98-107) meq/L Carbon Dioxide 26.0 (21.0-32.0) meq/L Anion Gap 9 (5-15) meq/L BUN 17 (7-18) mg/dL Creatinine 1.37 H (0.60-1.30) mg/dL Estimated GFR 52 L (>89) mL/min Random Glucose 117 H (74-106) mg/dL Hemoglobin A1c (4.3-6.0) % Calcium 8.5 (8.5-10.1) mg/dL Phosphorus (2.5-4.9) mg/dL Magnesium (1.5-2.5) mg/dL Total Bilirubin 0.5 (0.2-1.0) mg/dL AST 18 (15-37) U/L ALT 17 (12-78) U/L Alkaline Phosphatase 85 (45-117) U/L Total Protein 7.7 (6.4-8.2) g/dL Albumin 2.9 L (3.4-5.0) g/dL TSH (0.358-3.740) uIU/mL Free T4 (0.76-1.46) ng/dL Urine Color (Yellw/Straw) Urine Clarity (Clear) Urine pH (5.0-8.5) Ur Specific [place] (1.002-1.035) Urine Protein (Neg-Trace) mg/dL Urine Glucose (UA) (Negative) mg/dL Urine Ketones (Negative) mg/dL Urine Occult Blood (Negative) Urine Nitrate (Negative) Urine Bilirubin (Negative) Urine Urobilinogen (Less than 2) mg/dL Ur Leukocyte Esterase (Negative) Urine RBC (0-3) /hpf Urine WBC (0-5) /hpf Urine Mucus (Occasional) /lpf Micro UA Comment Urine Culture Comments Blood Type Antibody Screen 09/25/17 09/26/17 09/26/17 Range/Units 20:53 01:00 13:55 WBC (4.0-11.0) th/mm3 RBC (4.50-5.90) mil/mm3 Hgb (13.0-17.0) gm/dL Hct (39.0-51.0) % MCV (80.0-100.0) fL MCH (27.0-34.0) pg MCHC (32.0-36.0) % RDW (11.6-17.2) % Plt Count (150-450) th/mm3 MPV (7.0-11.0) fL Neut % (Auto) (16.0-70.0) % Lymph % (Auto) (9.0-44.0) % [place] % (Auto) (0.0-8.0) % Eos % (Auto) (0.0-4.0) % Baso % (Auto) (0.0-2.0) % Neut # (Auto) (1.8-7.7) th/mm3 Lymph # (Auto) (1.0-4.8) th/mm3 [place] # (Auto) (0.0-0.9) th/mm3 Eos # (Auto) (0.0-0.4) th/mm3 Baso # (Auto) (0.0-0.2) th/mm3 WBC Differential Differential Comment PT (9.8-11.6) sec INR Ratio APTT (24.3-30.1) sec Sodium (136-145) meq/L Potassium (3.5-5.1) meq/L Chloride (98-107) meq/L Carbon Dioxide (21.0-32.0) meq/L Anion Gap (5-15) meq/L BUN (7-18) mg/dL Creatinine (0.60-1.30) mg/dL Estimated GFR (>89) mL/min Random Glucose (74-106) mg/dL Hemoglobin A1c 5.5 (4.3-6.0) % Calcium (8.5-10.1) mg/dL Phosphorus (2.5-4.9) mg/dL Magnesium (1.5-2.5) mg/dL Total Bilirubin (0.2-1.0) mg/dL AST (15-37) U/L ALT (12-78) U/L Alkaline Phosphatase (45-117) U/L Total Protein (6.4-8.2) g/dL Albumin (3.4-5.0) g/dL TSH (0.358-3.740) uIU/mL Free T4 (0.76-1.46) ng/dL Urine Color Yellow (Yellw/Straw) Urine Clarity Clear (Clear) Urine pH 6.0 (5.0-8.5) Ur Specific [place] 1.013 (1.002-1.035) Urine Protein Negative (Neg-Trace) mg/dL Urine Glucose (UA) Negative (Negative) mg/dL Urine Ketones Negative (Negative) mg/dL Urine Occult Blood Negative (Negative) Urine Nitrate Negative (Negative) Urine Bilirubin Negative (Negative) Urine Urobilinogen Less than 2 (Less than 2) mg/dL Ur Leukocyte Esterase Negative (Negative) Urine RBC 1 (0-3) /hpf Urine WBC 1 (0-5) /hpf Urine Mucus Few H (Occasional) /lpf Micro UA Comment Culture not ind Urine Culture Comments Culture not ind Blood Type B Positive Antibody Screen Negative 09/26/17 09/26/17 09/27/17 Range/Units 13:55 13:55 07:08 WBC 10.1 (4.0-11.0) th/mm3 RBC 4.02 L (4.50-5.90) mil/mm3 Hgb 12.9 L (13.0-17.0) gm/dL Hct 37.7 L (39.0-51.0) % MCV 93.8 (80.0-100.0) fL MCH 32.0 (27.0-34.0) pg MCHC 34.2 (32.0-36.0) % RDW 13.1 (11.6-17.2) % Plt Count 227 (150-450) th/mm3 MPV 6.6 L (7.0-11.0) fL Neut % (Auto) 73.9 H (16.0-70.0) % Lymph % (Auto) 13.5 (9.0-44.0) % [place] % (Auto) 7.1 (0.0-8.0) % Eos % (Auto) 4.8 H (0.0-4.0) % Baso % (Auto) 0.7 (0.0-2.0) % Neut # (Auto) 7.5 (1.8-7.7) th/mm3 Lymph # (Auto) 1.4 (1.0-4.8) th/mm3 [place] # (Auto) 0.7 (0.0-0.9) th/mm3 Eos # (Auto) 0.5 H (0.0-0.4) th/mm3 Baso # (Auto) 0.1 (0.0-0.2) th/mm3 WBC Differential . Differential Comment Auto diff final PT (9.8-11.6) sec INR Ratio APTT (24.3-30.1) sec Sodium (136-145) meq/L Potassium (3.5-5.1) meq/L Chloride (98-107) meq/L Carbon Dioxide (21.0-32.0) meq/L Anion Gap (5-15) meq/L BUN (7-18) mg/dL Creatinine (0.60-1.30) mg/dL Estimated GFR (>89) mL/min Random Glucose (74-106) mg/dL Hemoglobin A1c (4.3-6.0) % Calcium (8.5-10.1) mg/dL Phosphorus (2.5-4.9) mg/dL Magnesium (1.5-2.5) mg/dL Total Bilirubin (0.2-1.0) mg/dL AST (15-37) U/L ALT (12-78) U/L Alkaline Phosphatase (45-117) U/L Total Protein (6.4-8.2) g/dL Albumin (3.4-5.0) g/dL TSH 0.373 (0.358-3.740) uIU/mL Free T4 1.15 (0.76-1.46) ng/dL Urine Color (Yellw/Straw) Urine Clarity (Clear) Urine pH (5.0-8.5) Ur Specific [place] (1.002-1.035) Urine Protein (Neg-Trace) mg/dL Urine Glucose (UA) (Negative) mg/dL Urine Ketones (Negative) mg/dL Urine Occult Blood (Negative) Urine Nitrate (Negative) Urine Bilirubin (Negative) Urine Urobilinogen (Less than 2) mg/dL Ur Leukocyte Esterase (Negative) Urine RBC (0-3) /hpf Urine WBC (0-5) /hpf Urine Mucus (Occasional) /lpf Micro UA Comment Urine Culture Comments Blood Type Antibody Screen 09/27/17 Range/Units 07:08 WBC (4.0-11.0) th/mm3 RBC (4.50-5.90) mil/mm3 Hgb (13.0-17.0) gm/dL Hct (39.0-51.0) % MCV (80.0-100.0) fL MCH (27.0-34.0) pg MCHC (32.0-36.0) % RDW (11.6-17.2) % Plt Count (150-450) th/mm3 MPV (7.0-11.0) fL Neut % (Auto) (16.0-70.0) % Lymph % (Auto) (9.0-44.0) % [place] % (Auto) (0.0-8.0) % Eos % (Auto) (0.0-4.0) % Baso % (Auto) (0.0-2.0) % Neut # (Auto) (1.8-7.7) th/mm3 Lymph # (Auto) (1.0-4.8) th/mm3 [place] # (Auto) (0.0-0.9) th/mm3 Eos # (Auto) (0.0-0.4) th/mm3 Baso # (Auto) (0.0-0.2) th/mm3 WBC Differential Differential Comment PT (9.8-11.6) sec INR Ratio APTT (24.3-30.1) sec Sodium 142 (136-145) meq/L Potassium 3.5 (3.5-5.1) meq/L Chloride 108 H (98-107) meq/L Carbon Dioxide 26.2 (21.0-32.0) meq/L Anion Gap 8 (5-15) meq/L BUN 11 (7-18) mg/dL Creatinine 1.16 (0.60-1.30) mg/dL Estimated GFR 63 L (>89) mL/min Random Glucose 92 (74-106) mg/dL Hemoglobin A1c (4.3-6.0) % Calcium 8.1 L (8.5-10.1) mg/dL Phosphorus 2.8 (2.5-4.9) mg/dL Magnesium 2.1 (1.5-2.5) mg/dL Total Bilirubin 0.5 (0.2-1.0) mg/dL AST 14 L (15-37) U/L ALT 16 (12-78) U/L Alkaline Phosphatase 81 (45-117) U/L Total Protein 7.2 (6.4-8.2) g/dL Albumin 2.7 L (3.4-5.0) g/dL TSH (0.358-3.740) uIU/mL Free T4 (0.76-1.46) ng/dL Urine Color (Yellw/Straw) Urine Clarity (Clear) Urine pH (5.0-8.5) Ur Specific [place] (1.002-1.035) Urine Protein (Neg-Trace) mg/dL Urine Glucose (UA) (Negative) mg/dL Urine Ketones (Negative) mg/dL Urine Occult Blood (Negative) Urine Nitrate (Negative) Urine Bilirubin (Negative) Urine Urobilinogen (Less than 2) mg/dL Ur Leukocyte Esterase (Negative) Urine RBC (0-3) /hpf Urine WBC (0-5) /hpf Urine Mucus (Occasional) /lpf Micro UA Comment Urine Culture Comments Blood Type Antibody Screen Imaging Data Radiologist's impression: Chest X-Ray 09/25/17 20:14 CONCLUSION: Stable appearance with mild scarring at the lung bases and no acute cardiopulmonary disease. Aorta w/Runoff CTA 09/25/17 20:18 CONCLUSION: 1. Occlusion of both common femoral arteries, superficial femoral arteries and popliteal arteries. 2. There is reconstitution of the trifurcation in the right calf. Discharge Plan Discharge Disposition Patient Disposition: 30 Still Patient Discharge Condition Condition: Good Discharge Order Discharge Orders: Discharge Order (Routine); Ordered 09/27/17 Ordered By: Vinicio Berg Discharge Details Anticipated Discharge Date: 09/27/17 Discharge Comment: DC TO SNF TODAY Physicians Team ED Provider: Lincoln Christianson ED Midlevel Provider: Joe Roberts Primary Care Provider: Shelley Mendenhall Clinical Attending Provider: Vinicio Berg Other Providers: Semaj Dumont ; [facility],Agency ; [facility],Insurance Status ED Status: Left Department Discharge Information Discharge Date/Time: 09/26/17 03:35
[2017-09-25] MEDS: Sod Chloride 0.9% Inj 1,000 ML IV.SIG ONE ×2 (21:01→21:48)
[2017-09-25 21:20] LABS: Baso # (Auto) 0.1 th/mm3 (0.0-0.2); Baso % (Auto) 0.6 % (0.0-2.0); Eos # (Auto) 0.8 th/mm3 (0.0-0.4); Eos % (Auto) 6.8 % (0.0-4.0); Hematocrit 38.5 % (39.0-51.0); Hemoglobin 13.7 gm/dL (13.0-17.0); Lymph # (Auto) 1.7 th/mm3 (1.0-4.8); Lymph % (Auto) 14.8 % (9.0-44.0); Mean Corpuscular HGB Conc 35.6 % (32.0-36.0); Mean Corpuscular Hemoglobin 32.7 pg (27.0-34.0); Mean Corpuscular Volume 91.7 fL (80.0-100.0); Mono # (Auto) 0.8 th/mm3 (0.0-0.9); Mono % (Auto) 7.3 % (0.0-8.0); Neut # (Auto) 7.9 th/mm3 (1.8-7.7); Neut % (Auto) 70.5 % (16.0-70.0); Platelet Count 211 th/mm3 (150-450); Red Blood Count 4.19 mil/mm3 (4.50-5.90); Red Cell Distribution Width 13.1 % (11.6-17.2); White Blood Count 11.2 th/mm3 (4.0-11.0)
[2017-09-25 21:30] LABS: Activated Partial Thrombo Time 53.7 sec (24.3-30.1); INR 1.6 Ratio; Prothrombin Time 15.9 sec (9.8-11.6)
--- NOTE | 2017-09-25 21:30 | XR ---
EXAM DATE: 09/25/2017 8:56 PM EDT AGE/SEX: 67 years / Male INDICATIONS: Short of breath. CLINICAL DATA: This is the patient's initial encounter. Patient reports that signs and symptoms have been present for 1 day and indicates a pain score of 0/10. MEDICAL/SURGICAL HISTORY: None. CABG. COMPARISON: [facility] [place], CHEST SINGLE AP, 02/18/2017. . FINDINGS: A single AP view of the chest demonstrates the lungs to be symmetrically aerated without evidence of mass, infiltrate or effusion. There is mild scarring at the lung bases. The cardiomediastinal contour s are unremarkable. Osseous structures are intact status post median sternotomy. CONCLUSION: Stable appearance with mild scarring at the lung bases and no acute cardiopulmonary disease. Electronically signed by: Emilio Saldivar MD 09/25/2017 9:28 PM EDT
[2017-09-25 21:43] LABS: Alanine Aminotransferase 17 U/L (12-78)
[2017-09-25 21:45] LABS: Alkaline Phosphatase 85 U/L (45-117); Total Protein 7.7 g/dL (6.4-8.2)
[2017-09-25 21:55] LABS: Albumin 2.9 g/dL (3.4-5.0); Anion Gap 9 meq/L (5-15); Aspartate Aminotransferase 18 U/L (15-37); Blood Urea Nitrogen 17 mg/dL (7-18); Calcium 8.5 mg/dL (8.5-10.1); Chloride 104 meq/L (98-107); Glomerular Filtration Rate 52 mL/min (>89); Glucose,Random 117 mg/dL (74-106); Potassium 3.7 meq/L (3.5-5.1); Sodium 139 meq/L (136-145)
--- NOTE | 2017-09-26 00:11 | CT ---
EXAM DATE: 09/25/2017 11:53 PM EDT AGE/SEX: 67 years / Male INDICATIONS: Right leg pain. Evaluate for occulsion. CLINICAL DATA: This is the patient's initial encounter. Patient reports that signs and symptoms have been present for 3 days and indicates a pain score of 7/10. MEDICAL/SURGICAL HISTORY: Chronic obstructive pulmonary disease. Aneurysm, abdominal. Hypertensio n. DVT Abdominal aortic aneurysm repair. Left lower leg amputation RADIATION DOSE: 11.83 CTDI (mGy) COMPARISON: No prior exams available for comparison. TECHNIQUE: Volumetric scanning was performed using a multi-row detector CT scanner during bolus infu cornelio of 100 ml Omnipaque 350 (iohexol) nonionic water-soluble contrast as a single exam dose. The data was post processed with a variety of visualization algorithms including full volume maximum inte nsity projection, multi-planar sliding thin slab reformation, curved planar reformation, and surface rendering techniques. Using automated exposure control and adjustment of the mA and/or kV according to patient size, radiation dose was kept as low as reasonably achievable to obtain optimal diagnostic quality images. DICOM format image data is available electronically for review and comparison. FINDINGS: Abdominal Aorta: Previous aneurysm repair. No residual aneurysm. The proximal celiac and superior me senteric arteries are patent with mild atherosclerotic changes. There are solitary renal arteries bi laterally with atherosclerotic changes but no significant narrowing. Bifurcation: Normal. Right Pelvis: The right common iliac, internal iliac, and external iliac vessels are patent with ath erosclerotic changes. Left Pelvis: The left common iliac, internal iliac, and external iliac vessels are patent with ather osclerotic changes. Right Thigh: Atherosclerotic changes and occlusion of the right common femoral artery and superficial femoral artery. Occluded stent within the superficial femoral artery. Left Thigh: Atherosclerotic changes and occlusion of the left common femoral artery and left superfi cial femoral artery. Right Knee: There is occlusion of the left popliteal artery. Left Knee: There is occlusion of the right popliteal artery.. Right Leg: There is reconstitution of the trifurcation which demonstrates atherosclerotic changes bu t no significant narrowing. Left Leg: Below the knee amputation. Other: Atrophic left kidney. Hepatic steatosis. CONCLUSION: 1. Occlusion of both common femoral arteries, superficial femoral arteries and popliteal arteries. 2. There is reconstitution of the trifurcation in the right calf. Electronically signed by: Christopher Ferrell MD 09/26/2017 12:10 AM EDT
[2017-09-26] MEDS ORDERED: Morphine Sulfate Inj 2 MG/ML Vial IV.PUSH ONE (00:29)
[2017-09-26 02:32] LABS: Bilirubin,Urine Negative (Negative); Clarity,Urine Clear (Clear); Color,Urine Yellow (Yellw/Straw); Glucose,Urine (UA) Negative (Negative); Leukocyte Esterase,Urine Negative (Negative); Mucus,Urine Few /lpf (Occasional); Nitrite,Urine Negative (Negative); Specific Gravity,Urine 1.013 (1.002-1.035)
[2017-09-26] MEDS ORDERED: Morphine Inj 4 MG/ML Vial IV.PUSH PRN (02:57)
[2017-09-26] MEDS ORDERED: Bisacodyl 10 MG Supp RECTAL PRN (02:58)
[2017-09-26] MEDS ORDERED: Acetaminophen 325 MG Tablet PO PRN (02:58)
[2017-09-26] MEDS ORDERED: Temazepam 15 MG Capsule PO PRN (02:58)
--- NOTE | 2017-09-26 03:21 | P.HP ---
History of Present Illness Service: [facility] Primary Care Physician: [facility] History of Present Illness: 67-year-old male with a past medical history significant for AAA repair, COPD, PVD, hypertension, GERD and adjustment disorder/depression resents to the emergency department for the evaluation of right lower extremity rash/pain. The patient has had 1 week of right lower leg redness, swelling and pain that has progressively worsened. He states that the rash started as small pustules on his upper thigh that then spread to his lower foot. He denies any fever/ chills. He had a duplex lower extremity arterial Doppler performed that showed no flow from the femoral artery stent through the popliteal artery. He reports the pain is worse with movement and palpation. He is having difficulty with bearing weight and transferring. He denies any chest pain or shortness of breath. No abdominal pain. No nausea/vomiting/diarrhea. No lateralizing signs /symptoms. Inpatient Certification: I certify that the inpatient services were ordered in accordance with Medicare regulations governing the order. This includes certification that hospital inpatient services are reasonable and necessary and in the case of services not specified as inpatient-only under 42 CFR 419.22(n), that they are appropriately provided as inpatient services in accordance to with the 2-midnight benchmark under 43 CFR 412.3(e) Estimated Total Length of Stay (Days): 2 Plans for Post Hospital Care: Not yet determined Review of Systems All other systems reviewed negative except as stated in HPI [facility] - History History Provided By: Medical Record, Reverse Engineer / EMT - Medical History Medical History: Medical History (Last Updated 09/26/17 @ 03:10 by Nel Severino MD) Abdominal aortic aneurysm Adjustment disorder COPD (chronic obstructive pulmonary disease) Complete below knee amputation of left lower extremity DVT (deep venous thrombosis) Depression GERD (gastroesophageal reflux disease) History of left below knee amputation Hypertension - Surgical History Surgical History: Surgical History (Last Updated 09/26/17 @ 03:10 by Nel Severino MD) S/P AAA repair S/P CABG x 3 - Family History Family History: Family History (Last Updated 09/26/17 @ 03:11 by Nel Severino MD) Other Family history normal - Tobacco History Smoking Status: Former smoker - Alcohol History How Often Do You Have a Drink Containing Alcohol: Never - Travel History Recent Travel in the [facility] Within the Last 8 Weeks: No Recent Travel Out of the Country Within the Last 8 Weeks: No - Immunization History Tetanus Immunization: Unsure Hx Influenza Vaccine This Season: Yes Medications and Allergies Active Medications: Active Medications Acetaminophen (Tylenol) 650 mg PO Q4H PRN PRN Reason: Temp > 100.4 Al Hydroxide/Mg Hydroxide (Milk Of Magnesia Liq) 30 ml PO Q12H PRN PRN Reason: Mild Constipation Atorvastatin Calcium (Lipitor) 10 mg PO DAILY [facility] Bisacodyl (Dulcolax Supp) 10 mg RECTAL DAILY PRN PRN Reason: SEVERE CONSITIPATION Gabapentin (Neurontin) 300 mg PO BID [facility] Clindamycin/Sodium Chloride (Cleocin 900 Mg/Ns Premix) 900 mg in 50 mls @ 100 mls/hr IV.SIG Q8H MARSHA Labetalol HCl (Trandate) 100 mg PO BID [facility] Lactulose (Lactulose Liq) 30 ml PO DAILY PRN PRN Reason: SEVERE CONSITIPATION Loratadine (Claritin) 10 mg PO DAILY [facility] Morphine Sulfate (Morphine Inj) 4 mg IV.PUSH Q4H PRN PRN Reason: pain 6-10 Non-Formulary Medication (Norvasc) 10 mg PO DAILY [facility] Non-Formulary Medication (Paroxetine Hcl [Paxil]) 30 mg PO DAILY [facility] Ondansetron HCl (Zofran Inj) 4 mg IV.PUSH Q6H PRN PRN Reason: NAUSEA OR VOMITING Rivaroxaban (Xarelto) 20 mg PO DAILY [facility] Senna/Docusate Sodium (Zhanna-Colace) 1 tab PO BID [facility] Sennosides (Senokot) 17.2 mg PO Q12H PRN PRN Reason: Moderate Constipation Temazepam (Restoril) 15 mg PO HS PRN PRN Reason: INSOMNIA Trazodone HCl (Desyrel) 100 mg PO DAILY [facility] Allergies Allergy/AdvReac Type Severity Reaction Status Date / Time codeine Allergy Intermediate Unverified 09/27/16 12:58 Home Medications Medication Instructions Recorded Confirmed Type Norvasc 10 mg PO DAILY 09/25/17 09/25/17 History atorvastatin 10 mg PO DAILY 09/25/17 09/25/17 History cephalexin [Keflex] 500 mg PO Q12H 09/25/17 09/25/17 History gabapentin [Neurontin] 300 mg PO BID 09/25/17 09/25/17 History labetalol 100 mg PO BID 09/25/17 09/25/17 History loratadine 10 mg PO DAILY 09/25/17 09/25/17 History oxycodone-acetaminophen [Percocet] 1 tab PO Q4H PRN 09/25/17 09/25/17 History paroxetine HCl [Paxil] 30 mg PO DAILY 09/25/17 09/25/17 History rivaroxaban [Xarelto] 20 mg PO DAILY 09/25/17 09/25/17 History trazodone 100 mg PO DAILY 09/25/17 09/25/17 History Exam Vital signs: Vital Signs 09/25/17 19:54 09/25/17 20:28 09/26/17 01:10 Temperature 98.6 F 99.6 F Pulse Rate 65 70 Respiratory Rate 20 16 18 Blood Pressure 141/67 H 129/64 Pulse Oximetry 93 L 95 Intake & Output 09/25/17 09/25/17 09/26/17 06:59 18:59 06:59 Weight 81.647 kg Narrative: Gen.: No acute distress Head: Normocephalic. Atraumatic. EENT: Pupils equal round and reactive to light. Nose without drainage. Airway intact. Throat without injection. Cardiovascular: Regular rate and rhythm. No murmurs, rubs or gallops. Respiratory: Lungs clear to auscultation bilaterally. No wheezes or rhonchi. Abdomen: Soft, nontender, nondistended. No peritoneal signs. Musculoskeletal: Left BKA. Right leg with edema and erythema surrounding the foot and lower half of the limb. Additional erythema on the right side. Warm to the touch. Exquisitely tender to palpation. Right foot well perfused without palpable pulses. DP pulse found with Doppler. Skin: No obvious rashes or erythema. Neuro: Sensory and motor grossly intact. Cranial nerves II through XII grossly intact. Results - Labs CBC & Chem 7: 09/25/17 20:53 09/25/17 20:53 Labs: Laboratory Results - last 24 hr 09/25/17 09/25/17 09/25/17 20:53 20:53 20:53 WBC 11.2 H RBC 4.19 L Hgb 13.7 Hct 38.5 L MCV 91.7 MCH 32.7 MCHC 35.6 RDW 13.1 Plt Count 211 MPV 7.0 Neut % (Auto) 70.5 H Lymph % (Auto) 14.8 [place] % (Auto) 7.3 Eos % (Auto) 6.8 H Baso % (Auto) 0.6 Neut # (Auto) 7.9 H Lymph # (Auto) 1.7 [place] # (Auto) 0.8 Eos # (Auto) 0.8 H Baso # (Auto) 0.1 WBC Differential . Differential Comment Auto diff final PT 15.9 H INR 1.6 APTT 53.7 H Sodium 139 Potassium 3.7 Chloride 104 Carbon Dioxide 26.0 Anion Gap 9 BUN 17 Creatinine 1.37 H Estimated GFR 52 L Random Glucose 117 H Calcium 8.5 Total Bilirubin 0.5 AST 18 ALT 17 Alkaline Phosphatase 85 Total Protein 7.7 Albumin 2.9 L Urine Color Urine Clarity Urine pH Ur Specific [place] Urine Protein Urine Glucose (UA) Urine Ketones Urine Occult Blood Urine Nitrate Urine Bilirubin Urine Urobilinogen Ur Leukocyte Esterase Urine RBC Urine WBC Urine Mucus Micro UA Comment Urine Culture Comments Blood Type Antibody Screen 09/25/17 09/26/17 20:53 01:00 WBC RBC Hgb Hct MCV MCH MCHC RDW Plt Count MPV Neut % (Auto) Lymph % (Auto) [place] % (Auto) Eos % (Auto) Baso % (Auto) Neut # (Auto) Lymph # (Auto) [place] # (Auto) Eos # (Auto) Baso # (Auto) WBC Differential Differential Comment PT INR APTT Sodium Potassium Chloride Carbon Dioxide Anion Gap BUN Creatinine Estimated GFR Random Glucose Calcium Total Bilirubin AST ALT Alkaline Phosphatase Total Protein Albumin Urine Color Yellow Urine Clarity Clear Urine pH 6.0 Ur Specific [place] 1.013 Urine Protein Negative Urine Glucose (UA) Negative Urine Ketones Negative Urine Occult Blood Negative Urine Nitrate Negative Urine Bilirubin Negative Urine Urobilinogen Less than 2 Ur Leukocyte Esterase Negative Urine RBC 1 Urine WBC 1 Urine Mucus Few H Micro UA Comment Culture not ind Urine Culture Comments Culture not ind Blood Type B Positive Antibody Screen Negative - Imaging Impressions Chest X-Ray 09/25/17 20:14 CONCLUSION: Stable appearance with mild scarring at the lung bases and no acute cardiopulmonary disease. Aorta w/Runoff CTA 09/25/17 20:18 CONCLUSION: 1. Occlusion of both common femoral arteries, superficial femoral arteries and popliteal arteries. 2. There is reconstitution of the trifurcation in the right calf. Caprini VTE Risk Assessment Caprini VTE Risk Assessment: Moderate/High Risk (score >= 2) Caprini Risk Assessment Model: Point Value = 1 Point Value = 2 Point Value = 3 Point Value = 5 Age 41-60 Minor surgery BMI > 25 kg/m2 Swollen legs Varicose veins or History of unexplained or recurrent spontaneous Oral contraceptives or hormone replacement Sepsis (< 1 month) Serious lung disease, including pneumonia (< 1 month) Abnormal pulmonary function Acute myocardial infarction Congestive heart failure (< 1 month) History of inflammatory bowel disease Medical patient at bed rest Age 61-74 Arthroscopic surgery Major open surgery (> 45 min) Laparoscopic surgery (> 45 min) Malignancy Confined to bed (> 72 hours) Immobilizing plaster cast Central venous access Age >= 75 History of VTE Family history of VTE Factor V Leiden Prothrombin [id number] Lupus anticoagulant Anticardiolipin antibodies Elevated serum homocysteine Heparin-induced thrombocytopenia Other congenital or acquired thrombophilia Stroke (< 1 month) Elective arthroplasty Hip, pelvis, or leg fracture Acute spinal cord injury (< 1 month) Prophylaxis Regimen: Total Risk Factor Score Risk Level Prophylaxis Regimen 0-1 Low Early ambulation 2 Moderate Order ONE of the following: *Sequential Compression Device (SCD) *Heparin 5000 units SQ BID 3-4 Higher Order ONE of the following medications: *Heparin 5000 units SQ TID *Enoxaparin/Lovenox 40 mg SQ daily (WT < 150 kg, CrCl > 30 mL/min) *Enoxaparin/Lovenox 30 mg SQ daily (WT < 150 kg, CrCl > 10-29 mL/min) *Enoxaparin/Lovenox 30 mg SQ BID (WT < 150 kg, CrCl > 30 mL/min) AND/OR *Sequential Compression Device (SCD) 5 or more Highest Order ONE of the following medications: *Heparin 5000 units SQ TID (Preferred with Epidurals) *Enoxaparin/Lovenox 40 mg SQ daily (WT < 150 kg, CrCl > 30 mL/min) *Enoxaparin/Lovenox 30 mg SQ daily (WT < 150 kg, CrCl > 10-29 mL/min) *Enoxaparin/Lovenox 30 mg SQ BID (WT < 150 kg, CrCl > 30 mL/min) AND *Sequential Compression Device (SCD) Assessment and Plan - Plan Assessment/plan: 1. 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 Alvarado, consulted, appreciate assistance 2. Right lower extremity cellulitis Clindamycin 3. Peripheral vascular disease Continue Xarelto 4. Hypertension Continue home labetalol/Norvasc 5. Adjustment disorder/depression Continue home Paxil/trazodone 6. Chronic kidney disease Creatinine 1.37, baseline Monitor renal function FEN N.p.o. Electrolytes: Monitor and replete as needed Xarelto NS at 100 cc/hour
[2017-09-26] MEDS: Sod Chloride 0.9% Inj 1,000 ML IV.CONT SCH ×2 (03:47→14:25)
--- NOTE | 2017-09-26 06:06 | ECG ---
Date Performed: 09/25/2017 Time Performed: 20:41:27 PTAGE: 67 years EKG: Baseline artifact present Sinus rhythm RIGHT BUNDLE BRANCH BLOCK Cannot rule out SEPTAL MYOCARDIAL INFARCTION ABNORMAL ECG No significant c hange from prior electrocardiogram. DOCTOR: Nilson Morejon Interpretating Date/Time 09/26/2017 06:06:23
[2017-09-26] MEDS: Clindamycin 900 mg/NS Premix 900 MG/50 ML PIGGYBACK IV.SIG SCH ×3 (06:22→21:49)
[2017-09-26] MEDS: Senna/Docusate Sodium 8.6/50 MG Tablet PO SCH ×2 (09:31→20:46)
[2017-09-26] MEDS: Loratadine 10 MG Tablet PO SCH (09:31)
[2017-09-26] MEDS: Labetalol 100 MG Tablet PO SCH ×2 (09:31→20:50)
[2017-09-26] MEDS: amLODIPine 10 MG Tablet PO SCH (09:31)
[2017-09-26] MEDS: traZODone 100 MG Tablet PO SCH (09:31)
[2017-09-26] MEDS: Gabapentin 300 MG Capsule PO SCH ×2 (09:31→20:46)
[2017-09-26] MEDS: Rivaroxaban 20 MG Tablet PO SCH (09:32)
[2017-09-26] MEDS ORDERED: oxyCODONE/Acetaminophen 10/325 Tablet PO PRN (09:47)
--- NOTE | 2017-09-26 09:47 | P.PNIM ---
Subjective Interval history: 67-year-old male with a past medical history significant for AAA repair, COPD, PVD, hypertension, GERD and adjustment disorder/depression resents to the emergency department for the evaluation of right lower extremity rash/pain. The patient has had 1 week of right lower leg redness, swelling and pain that has progressively worsened. He states that the rash started as small pustules on his upper thigh that then spread to his lower foot. He denies any fever/ chills. He had a duplex lower extremity arterial Doppler performed that showed no flow from the femoral artery stent through the popliteal artery. He reports the pain is worse with movement and palpation. He is having difficulty with bearing weight and transferring. He denies any chest pain or shortness of breath. No abdominal pain. No nausea/vomiting/diarrhea. No lateralizing signs /symptoms. 09-[address] Dumotn evaluation HAS LEFT BKA ALREADY Physical Exam Vital signs: Vital Signs 09/25/17 19:54 09/25/17 20:28 09/26/17 01:10 Temperature 98.6 F 99.6 F Pulse Rate 65 70 Respiratory Rate 20 16 18 Blood Pressure 141/67 H 129/64 Pulse Oximetry 93 L 95 09/26/17 03:34 09/26/17 04:00 09/26/17 07:43 Temperature 98.7 F 97.7 F Pulse Rate 73 64 64 Respiratory Rate 19 17 14 Blood Pressure 132/67 115/58 L 119/56 L Pulse Oximetry 92 L 95 Intake & Output 09/25/17 09/26/17 09/26/17 18:59 06:59 18:59 Intake Total 1150 / 1150 Balance 1150 / 1150 Weight 81.647 kg Intake: IV 1150 / 1150 Cleocin 900 mg/NS Premix 900 mg 50 / 50 In 50 ml @ 100 mls/hr IV.SIG Q8H MARSHA Rx#:[id number] NS Inj 1,000 ML @ Wide Open IV. 1000 / 1000 SIG BOLUS ONE Rx#:[id number] Ancef Inj 1,000 MG In NS Inj 100 / 100 100 ML @ 100 mls/hr IV.SIG ONCE ONE Rx#:[id number] Other: Weight On Admission 81.647 kg Narrative: Gen.: No acute distress Head: Normocephalic. Atraumatic. EENT: Pupils equal round and reactive to light. Nose without drainage. Airway intact. Throat without injection. Cardiovascular: Regular rate and rhythm. No murmurs, rubs or gallops. Respiratory: Lungs clear to auscultation bilaterally. No wheezes or rhonchi. Abdomen: Soft, nontender, nondistended. No peritoneal signs. Musculoskeletal: Left BKA. Right leg with edema and erythema surrounding the foot and lower half of the limb. Additional erythema on the right side. Warm to the touch. Exquisitely tender to palpation. Right foot well perfused without palpable pulses. DP pulse found with Doppler. Skin: No obvious rashes or erythema. Neuro: Sensory and motor grossly intact. Cranial nerves II through XII grossly intact. Results - Labs CBC & Chem 7: 09/25/17 20:53 09/25/17 20:53 Laboratory Results - last 24 hr 09/25/17 09/25/17 09/25/17 20:53 20:53 20:53 WBC 11.2 H RBC 4.19 L Hgb 13.7 Hct 38.5 L MCV 91.7 MCH 32.7 MCHC 35.6 RDW 13.1 Plt Count 211 MPV 7.0 Neut % (Auto) 70.5 H Lymph % (Auto) 14.8 [place] % (Auto) 7.3 Eos % (Auto) 6.8 H Baso % (Auto) 0.6 Neut # (Auto) 7.9 H Lymph # (Auto) 1.7 [place] # (Auto) 0.8 Eos # (Auto) 0.8 H Baso # (Auto) 0.1 WBC Differential . Differential Comment Auto diff final PT 15.9 H INR 1.6 APTT 53.7 H Sodium 139 Potassium 3.7 Chloride 104 Carbon Dioxide 26.0 Anion Gap 9 BUN 17 Creatinine 1.37 H Estimated GFR 52 L Random Glucose 117 H Calcium 8.5 Total Bilirubin 0.5 AST 18 ALT 17 Alkaline Phosphatase 85 Total Protein 7.7 Albumin 2.9 L Urine Color Urine Clarity Urine pH Ur Specific [place] Urine Protein Urine Glucose (UA) Urine Ketones Urine Occult Blood Urine Nitrate Urine Bilirubin Urine Urobilinogen Ur Leukocyte Esterase Urine RBC Urine WBC Urine Mucus Micro UA Comment Urine Culture Comments Blood Type Antibody Screen 09/25/17 09/26/17 20:53 01:00 WBC RBC Hgb Hct MCV MCH MCHC RDW Plt Count MPV Neut % (Auto) Lymph % (Auto) [place] % (Auto) Eos % (Auto) Baso % (Auto) Neut # (Auto) Lymph # (Auto) [place] # (Auto) Eos # (Auto) Baso # (Auto) WBC Differential Differential Comment PT INR APTT Sodium Potassium Chloride Carbon Dioxide Anion Gap BUN Creatinine Estimated GFR Random Glucose Calcium Total Bilirubin AST ALT Alkaline Phosphatase Total Protein Albumin Urine Color Yellow Urine Clarity Clear Urine pH 6.0 Ur Specific [place] 1.013 Urine Protein Negative Urine Glucose (UA) Negative Urine Ketones Negative Urine Occult Blood Negative Urine Nitrate Negative Urine Bilirubin Negative Urine Urobilinogen Less than 2 Ur Leukocyte Esterase Negative Urine RBC 1 Urine WBC 1 Urine Mucus Few H Micro UA Comment Culture not ind Urine Culture Comments Culture not ind Blood Type B Positive Antibody Screen Negative - Imaging Impressions Chest X-Ray 09/25/17 20:14 CONCLUSION: Stable appearance with mild scarring at the lung bases and no acute cardiopulmonary disease. Aorta w/Runoff CTA 09/25/17 20:18 CONCLUSION: 1. Occlusion of both common femoral arteries, superficial femoral arteries and popliteal arteries. 2. There is reconstitution of the trifurcation in the right calf. Assessment and Plan - Plan 1. 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 Dumont, consulted, appreciate assistance 2. Right lower extremity cellulitis Clindamycin 3. Peripheral vascular disease Continue Xarelto 4. Hypertension Continue home labetalol/Norvasc 5. Adjustment disorder/depression Continue home Paxil/trazodone 6. Chronic kidney disease Creatinine 1.37, baseline Monitor renal function FEN N.p.o. Electrolytes: Monitor and replete as needed Xarelto NS at 100 cc/hour Code Status: Full code Discussed Condition With: RN and patient and case management Discharge Planning: Pending evaluation by Dr. Alvarado
--- NOTE | 2017-09-26 15:07 | P.PNVS ---
Subjective Subjective/Hospital Course: 09/26/2017 Referral received Patient known to me from previous encounters and surgeries Full consult to follow Ibrahima Alvarado Objective Vital Signs / I&O: Vital Signs 09/25/17 19:54 09/25/17 20:28 09/26/17 01:10 Temperature 98.6 F 99.6 F Pulse Rate 65 70 Respiratory Rate 20 16 18 Blood Pressure 141/67 H 129/64 Pulse Oximetry 93 L 95 09/26/17 03:34 09/26/17 04:00 09/26/17 07:43 Temperature 98.7 F 97.7 F Pulse Rate 73 64 64 Respiratory Rate 19 17 14 Blood Pressure 132/67 115/58 L 119/56 L Pulse Oximetry 92 L 95 09/26/17 11:42 Temperature 98.6 F Pulse Rate 57 L Respiratory Rate 14 Blood Pressure 106/54 L Pulse Oximetry 92 L Intake & Output 09/25/17 09/26/17 09/26/17 18:59 06:59 18:59 Intake Total 1150 / 1150 1000 / 1000 Balance 1150 / 1150 1000 / 1000 Weight 81.647 kg Intake: IV 1150 / 1150 1000 / 1000 NS Inj 1,000 ML @ 100 mls/hr IV 1000 / 1000 .CONT .Q10H MARSHA Rx#:[id number] Cleocin 900 mg/NS Premix 900 mg 50 / 50 In 50 ml @ 100 mls/hr IV.SIG Q8H MARSHA Rx#:[id number] NS Inj 1,000 ML @ Wide Open IV. 1000 / 1000 SIG BOLUS ONE Rx#:[id number] Ancef Inj 1,000 MG In NS Inj 100 / 100 100 ML @ 100 mls/hr IV.SIG ONCE ONE Rx#:[id number] Other: Weight On Admission 81.647 kg Laboratory Results - last 24 hr 09/25/17 09/25/17 09/25/17 20:53 20:53 20:53 WBC 11.2 H RBC 4.19 L Hgb 13.7 Hct 38.5 L MCV 91.7 MCH 32.7 MCHC 35.6 RDW 13.1 Plt Count 211 MPV 7.0 Neut % (Auto) 70.5 H Lymph % (Auto) 14.8 [place] % (Auto) 7.3 Eos % (Auto) 6.8 H Baso % (Auto) 0.6 Neut # (Auto) 7.9 H Lymph # (Auto) 1.7 [place] # (Auto) 0.8 Eos # (Auto) 0.8 H Baso # (Auto) 0.1 WBC Differential . Differential Comment Auto diff final PT 15.9 H INR 1.6 APTT 53.7 H Sodium 139 Potassium 3.7 Chloride 104 Carbon Dioxide 26.0 Anion Gap 9 BUN 17 Creatinine 1.37 H Estimated GFR 52 L Random Glucose 117 H Calcium 8.5 Total Bilirubin 0.5 AST 18 ALT 17 Alkaline Phosphatase 85 Total Protein 7.7 Albumin 2.9 L TSH Free T4 Urine Color Urine Clarity Urine pH Ur Specific [place] Urine Protein Urine Glucose (UA) Urine Ketones Urine Occult Blood Urine Nitrate Urine Bilirubin Urine Urobilinogen Ur Leukocyte Esterase Urine RBC Urine WBC Urine Mucus Micro UA Comment Urine Culture Comments Blood Type Antibody Screen 09/25/17 09/26/17 09/26/17 20:53 01:00 13:55 WBC RBC Hgb Hct MCV MCH MCHC RDW Plt Count MPV Neut % (Auto) Lymph % (Auto) [place] % (Auto) Eos % (Auto) Baso % (Auto) Neut # (Auto) Lymph # (Auto) [place] # (Auto) Eos # (Auto) Baso # (Auto) WBC Differential Differential Comment PT INR APTT Sodium Potassium Chloride Carbon Dioxide Anion Gap BUN Creatinine Estimated GFR Random Glucose Calcium Total Bilirubin AST ALT Alkaline Phosphatase Total Protein Albumin TSH Free T4 1.15 Urine Color Yellow Urine Clarity Clear Urine pH 6.0 Ur Specific [place] 1.013 Urine Protein Negative Urine Glucose (UA) Negative Urine Ketones Negative Urine Occult Blood Negative Urine Nitrate Negative Urine Bilirubin Negative Urine Urobilinogen Less than 2 Ur Leukocyte Esterase Negative Urine RBC 1 Urine WBC 1 Urine Mucus Few H Micro UA Comment Culture not ind Urine Culture Comments Culture not ind Blood Type B Positive Antibody Screen Negative 09/26/17 13:55 WBC RBC Hgb Hct MCV MCH MCHC RDW Plt Count MPV Neut % (Auto) Lymph % (Auto) [place] % (Auto) Eos % (Auto) Baso % (Auto) Neut # (Auto) Lymph # (Auto) [place] # (Auto) Eos # (Auto) Baso # (Auto) WBC Differential Differential Comment PT INR APTT Sodium Potassium Chloride Carbon Dioxide Anion Gap BUN Creatinine Estimated GFR Random Glucose Calcium Total Bilirubin AST ALT Alkaline Phosphatase Total Protein Albumin TSH 0.373 Free T4 Urine Color Urine Clarity Urine pH Ur Specific [place] Urine Protein Urine Glucose (UA) Urine Ketones Urine Occult Blood Urine Nitrate Urine Bilirubin Urine Urobilinogen Ur Leukocyte Esterase Urine RBC Urine WBC Urine Mucus Micro UA Comment Urine Culture Comments Blood Type Antibody Screen Impressions Chest X-Ray 09/25/17 20:14 CONCLUSION: Stable appearance with mild scarring at the lung bases and no acute cardiopulmonary disease. Aorta w/Runoff CTA 09/25/17 20:18 CONCLUSION: 1. Occlusion of both common femoral arteries, superficial femoral arteries and popliteal arteries. 2. There is reconstitution of the trifurcation in the right calf.
[2017-09-26 17:20] LABS: Hemoglobin A1c 5.5 % (4.3-6.0)
[2017-09-27] MEDS: Sod Chloride 0.9% Inj 1,000 ML IV.CONT SCH (02:09)
[2017-09-27] MEDS: Clindamycin 900 mg/NS Premix 900 MG/50 ML PIGGYBACK IV.SIG SCH ×2 (05:38→16:26)
[2017-09-27 07:33] LABS: Baso # (Auto) 0.1 th/mm3 (0.0-0.2); Baso % (Auto) 0.7 % (0.0-2.0); Eos # (Auto) 0.5 th/mm3 (0.0-0.4); Eos % (Auto) 4.8 % (0.0-4.0); Hematocrit 37.7 % (39.0-51.0); Hemoglobin 12.9 gm/dL (13.0-17.0); Lymph # (Auto) 1.4 th/mm3 (1.0-4.8); Lymph % (Auto) 13.5 % (9.0-44.0); Mean Corpuscular HGB Conc 34.2 % (32.0-36.0); Mean Corpuscular Volume 93.8 fL (80.0-100.0); Mean Platelet Volume 6.6 fL (7.0-11.0); Mono # (Auto) 0.7 th/mm3 (0.0-0.9); Mono % (Auto) 7.1 % (0.0-8.0); Neut # (Auto) 7.5 th/mm3 (1.8-7.7); Neut % (Auto) 73.9 % (16.0-70.0); Platelet Count 227 th/mm3 (150-450); Red Blood Count 4.02 mil/mm3 (4.50-5.90); Red Cell Distribution Width 13.1 % (11.6-17.2); White Blood Count 10.1 th/mm3 (4.0-11.0)
[2017-09-27 07:51] VITALS: RESP 18
[2017-09-27 08:02] LABS: Alanine Aminotransferase 16 U/L (12-78); Albumin 2.7 g/dL (3.4-5.0); Anion Gap 8 meq/L (5-15); Aspartate Aminotransferase 14 U/L (15-37); Blood Urea Nitrogen 11 mg/dL (7-18); Calcium 8.1 mg/dL (8.5-10.1); Carbon Dioxide 26.2 meq/L (21.0-32.0); Chloride 108 meq/L (98-107); Glomerular Filtration Rate 63 mL/min (>89); Glucose,Random 92 mg/dL (74-106); Magnesium 2.1 mg/dL (1.5-2.5); Phosphorus 2.8 mg/dL (2.5-4.9); Potassium 3.5 meq/L (3.5-5.1); Sodium 142 meq/L (136-145)
[2017-09-27 08:04] LABS: Alkaline Phosphatase 81 U/L (45-117); Total Protein 7.2 g/dL (6.4-8.2)
[2017-09-27] MEDS: traZODone 100 MG Tablet PO SCH (10:20)
[2017-09-27] MEDS: amLODIPine 10 MG Tablet PO SCH (10:20)
[2017-09-27] MEDS: Loratadine 10 MG Tablet PO SCH (10:22)
[2017-09-27] MEDS: Rivaroxaban 20 MG Tablet PO SCH (10:22)
[2017-09-27] MEDS: Gabapentin 300 MG Capsule PO SCH (10:22)
[2017-09-27] MEDS: Senna/Docusate Sodium 8.6/50 MG Tablet PO SCH (10:24)
[2017-09-27] MEDS: Labetalol 100 MG Tablet PO SCH (10:31)
--- NOTE | 2017-09-27 11:25 | MB ---
cc: Semaj Dumont MD DATE: 09/27/2017 CONSULTING PHYSICIAN: Cherri Dumont MD REASON FOR CONSULTATION: Right leg cellulitis and pain, peripheral vascular disease. HISTORY OF PRESENT ILLNESS: A 67-year-old male with known severe peripheral vascular disease, COPD, aneurysm repair, presents to the hospital with pain in his right foot and lower leg as well as a ruborous rash. The patient says that this has been there for about a week and swelling has progressively worsened. He says that first he had small pustules and then that spread down to the foot. Denies any fever, nausea, vomiting, chills. A question arises of any vascular implications. PAST MEDICAL HISTORY: Severe peripheral vascular disease, advanced COPD, recurrent deep venous thrombosis, hypertension, abdominal aortic aneurysm for which the patient had endovascular graft placed successfully. PAST SURGICAL HISTORY: Endovascular graft placement and CABG, as well as left [id number] amputation for gangrene of the left foot. SOCIAL HISTORY: The patient does not smoke for the last 2 months. States he does not drink. PHYSICAL EXAMINATION: GENERAL: Reveals a 67-year-old male. HEENT: Normocephalic. No trauma to head. Pupils equal, reactive. Extraocular muscles intact. NECK: Bilateral carotid pulses, bilateral pain carotid bruits that have been evaluated in the past. CHEST: Decreased breath sounds over both lung camejo consistent with fairly advanced COPD. HEART: Regular rate and rhythm. ABDOMEN: Soft. No rebound, no guarding, no masses. Endovascular graft is nicely positioned. EXTREMITIES: The patient has a left BKA, which is nicely healed. On the right side I do not feel femoral pulse or any distal pulses. The patient has, however Dopplerable posterior tibial pulse, which is probably by reconstitution and no Doppler popliteal pulse. Foot is however, warm and perfused by collateral flow. There is no gangrene or ulceration noted. Indeed, the patient has some cellulitis of the foot and the ankle, tender. IMPRESSION: I reviewed laboratory and diagnostic procedures. This gentleman had a left below-knee amputation in the past. About 25% of patients with a sided amputation for peripheral vascular disease will have the other side, within 5 years, amputated. This patient has severe peripheral vascular disease. He has occlusion of his common femoral, superficial femoral, and popliteal arteries. He perfuses through the deep femoral artery and gluteal arteries down to below the trifurcation and then trifurcation is running to the foot based on this collateral flow. This is a nonreconstructable disease by endovascular or open means and he is a poor candidate for surgery to start with. At this point, no surgery would be recommended or offered. MD BILLIE Denton/joshua , 10:57 AM , 11:07 AM [email or web address]
[2017-09-27 12:59] VITALS: BP 106/55; PULSE 65; TEMP 98.8; O2SAT 94
--- NOTE | 2017-09-27 14:02 | P.PNIM ---
Subjective Interval history: 67-year-old male with a past medical history significant for AAA repair, COPD, PVD, hypertension, GERD and adjustment disorder/depression resents to the emergency department for the evaluation of right lower extremity rash/pain. The patient has had 1 week of right lower leg redness, swelling and pain that has progressively worsened. He states that the rash started as small pustules on his upper thigh that then spread to his lower foot. He denies any fever/ chills. He had a duplex lower extremity arterial Doppler performed that showed no flow from the femoral artery stent through the popliteal artery. He reports the pain is worse with movement and palpation. He is having difficulty with bearing weight and transferring. He denies any chest pain or shortness of breath. No abdominal pain. No nausea/vomiting/diarrhea. No lateralizing signs /symptoms. 09-[address] Emmanuel evaluation HAS LEFT BKA ALREADY 09-[address] EMMANUEL WILL SWITCH TO PO MEDS AND DC TO SNF DC TO SNF TODAY SEE [address] EMMANUEL IN 2 WEEKS Physical Exam Vital signs: Vital Signs 09/26/17 16:00 09/26/17 20:00 09/26/17 23:57 Temperature 98.1 F 97.9 F 98.1 F Pulse Rate 55 L 71 72 Respiratory Rate 16 20 21 Blood Pressure 111/54 L 119/57 L 111/57 L Pulse Oximetry 92 L 89 L 88 L 09/27/17 03:56 09/27/17 07:48 09/27/17 12:00 Temperature 99.6 F 98.2 F 98.8 F Pulse Rate 74 68 65 Respiratory Rate 22 18 18 Blood Pressure 140/67 140/61 106/55 L Pulse Oximetry 91 L 94 L Intake & Output 09/26/17 09/27/17 09/27/17 18:59 06:59 18:59 Intake Total 1050 / 1050 1460 / 1460 Output Total 300 / 300 Balance 1050 / 1050 1160 / 1160 Intake: IV 1050 / 1050 1100 / 1100 NS Inj 1,000 ML @ 100 mls/hr IV 1000 / 1000 1000 / 1000 .CONT .Q10H [facility] Rx#:[id number] Cleocin 900 mg/NS Premix 900 mg 50 / 50 100 / 100 In 50 ml @ 100 mls/hr IV.SIG Q8H [facility] Rx#:[id number] Oral 360 / 360 Output: Urine 300 / 300 Other: # Incontinent Voids 1 # Urine Diapers 1 Narrative: Gen.: No acute distress Head: Normocephalic. Atraumatic. EENT: Pupils equal round and reactive to light. Nose without drainage. Airway intact. Throat without injection. Cardiovascular: Regular rate and rhythm. No murmurs, rubs or gallops. Respiratory: Lungs clear to auscultation bilaterally. No wheezes or rhonchi. Abdomen: Soft, nontender, nondistended. No peritoneal signs. Musculoskeletal: Left BKA. Right leg with edema and erythema surrounding the foot and lower half of the limb. Additional erythema on the right side. Warm to the touch. Exquisitely tender to palpation. Right foot well perfused without palpable pulses. DP pulse found with Doppler. Skin: No obvious rashes or erythema. Neuro: Sensory and motor grossly intact. Cranial nerves II through XII grossly intact. Results - Labs CBC & Chem 7: 09/27/17 07:08 09/27/17 07:08 Laboratory Results - last 24 hr 09/26/17 09/26/17 09/26/17 13:55 13:55 13:55 WBC RBC Hgb Hct MCV MCH MCHC RDW Plt Count MPV Neut % (Auto) Lymph % (Auto) Andrews % (Auto) Eos % (Auto) Baso % (Auto) Neut # (Auto) Lymph # (Auto) Andrews # (Auto) Eos # (Auto) Baso # (Auto) WBC Differential Differential Comment Sodium Potassium Chloride Carbon Dioxide Anion Gap BUN Creatinine Estimated GFR Random Glucose Hemoglobin A1c 5.5 Calcium Phosphorus Magnesium Total Bilirubin AST ALT Alkaline Phosphatase Total Protein Albumin TSH 0.373 Free T4 1.15 09/27/17 09/27/17 07:08 07:08 WBC 10.1 RBC 4.02 L Hgb 12.9 L Hct 37.7 L MCV 93.8 MCH 32.0 MCHC 34.2 RDW 13.1 Plt Count 227 MPV 6.6 L Neut % (Auto) 73.9 H Lymph % (Auto) 13.5 Andrews % (Auto) 7.1 Eos % (Auto) 4.8 H Baso % (Auto) 0.7 Neut # (Auto) 7.5 Lymph # (Auto) 1.4 Andrews # (Auto) 0.7 Eos # (Auto) 0.5 H Baso # (Auto) 0.1 WBC Differential . Differential Comment Auto diff final Sodium 142 Potassium 3.5 Chloride 108 H Carbon Dioxide 26.2 Anion Gap 8 BUN 11 Creatinine 1.16 Estimated GFR 63 L Random Glucose 92 Hemoglobin A1c Calcium 8.1 L Phosphorus 2.8 Magnesium 2.1 Total Bilirubin 0.5 AST 14 L ALT 16 Alkaline Phosphatase 81 Total Protein 7.2 Albumin 2.7 L TSH Free T4 - Imaging Chest X-Ray 09/25/17 20:14 CONCLUSION: Stable appearance with mild scarring at the lung bases and no acute cardiopulmonary disease. Aorta w/Runoff CTA 09/25/17 20:18 CONCLUSION: 1. Occlusion of both common femoral arteries, superficial femoral arteries and popliteal arteries. 2. There is reconstitution of the trifurcation in the right calf. - Procedures NONE Assessment and Plan - Plan 1. 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 Emmanuel, consulted, appreciate assistance NO SURGERY PER SURGEON 2. Right lower extremity cellulitis SWITCH TO DOXYCYCLINE 3. Peripheral vascular disease Continue Xarelto 4. Hypertension Continue home labetalol/Norvasc 5. Adjustment disorder/depression Continue home Paxil/trazodone 6. Chronic kidney disease Creatinine 1.37, baseline Monitor renal function FEN N.p.o. Electrolytes: Monitor and replete as needed Xarelto NS at 100 cc/hour Code Status: FULL CODE Discussed Condition With: RN AND PT AND CM Discharge Planning: SEEN BY SURGERY
--- NOTE | 2017-09-27 14:16 | P.DS ---
Date of admission: 09/26/17 00:52 Primary care physician: [facility] Attending physician on discharge: Vinicio Berg Anticipated date of discharge: 09/27/17 Brief History from admission: 67-year-old male with a past medical history significant for AAA repair, COPD, PVD, hypertension, GERD and adjustment disorder/depression resents to the emergency department for the evaluation of right lower extremity rash/pain. The patient has had 1 week of right lower leg redness, swelling and pain that has progressively worsened. He states that the rash started as small pustules on his upper thigh that then spread to his lower foot. He denies any fever/ chills. He had a duplex lower extremity arterial Doppler performed that showed no flow from the femoral artery stent through the popliteal artery. He reports the pain is worse with movement and palpation. He is having difficulty with bearing weight and transferring. He denies any chest pain or shortness of breath. No abdominal pain. No nausea/vomiting/diarrhea. No lateralizing signs /symptoms. DS: Diagnosis - Discharge Diagnosis (1) Cellulitis of right leg Status: Acute (2) Status post below knee amputation of left lower extremity Status: Chronic (3) COPD (chronic obstructive pulmonary disease) Status: Chronic (4) Depression Status: Chronic DS: Medications - Discharge Medications Prescriptions: doxycycline hyclate 100 mg PO BID #28 cap oxycodone-acetaminophen [Percocet] 1 tab PO Q4H PRN #18 tab PRN Reason: Pain DS: Summary Hospital Course: 67-year-old male with a past medical history significant for AAA repair, COPD, PVD, hypertension, GERD and adjustment disorder/depression resents to the emergency department for the evaluation of right lower extremity rash/pain. The patient has had 1 week of right lower leg redness, swelling and pain that has progressively worsened. He states that the rash started as small pustules on his upper thigh that then spread to his lower foot. He denies any fever/ chills. He had a duplex lower extremity arterial Doppler performed that showed no flow from the femoral artery stent through the popliteal artery. He reports the pain is worse with movement and palpation. He is having difficulty with bearing weight and transferring. He denies any chest pain or shortness of breath. No abdominal pain. No nausea/vomiting/diarrhea. No lateralizing signs /symptoms. 8-[address] Dumont evaluation HAS LEFT BKA ALREADY 09-[address] DUMONT WILL SWITCH TO PO MEDS AND DC TO SNF DC TO SNF TODAY SEE [address] DUMONT IN 2 WEEKS E-SHAYE VIEWED WILL CONTINUE HOME PAIN MEDS AT 1 PO Q6H # 18 OXYCODONE/ACETAMINOPHEN 10/325 PATIENT RETURNING TO SNF IS CHRONICALLY ON PAIN MEDS - Time Spent with Patient Total time spent providing and/or coordinating discharge services: Greater than 30 minutes - Quality: VTE Deep Vein Thrombosis/Pulmonary Embolism Present on Admission: No Exam Vital signs: Vital Signs 09/26/17 16:00 09/26/17 20:00 09/26/17 23:57 Temperature 98.1 F 97.9 F 98.1 F Pulse Rate 55 L 71 72 Respiratory Rate 16 20 21 Blood Pressure 111/54 L 119/57 L 111/57 L Pulse Oximetry 92 L 89 L 88 L 09/27/17 03:56 09/27/17 07:48 09/27/17 12:00 Temperature 99.6 F 98.2 F 98.8 F Pulse Rate 74 68 65 Respiratory Rate 22 18 18 Blood Pressure 140/67 140/61 106/55 L Pulse Oximetry 91 L 94 L Intake & Output 09/26/17 09/27/17 09/27/17 18:59 06:59 18:59 Intake Total 1050 / 1050 1460 / 1460 Output Total 300 / 300 Balance 1050 / 1050 1160 / 1160 Intake: IV 1050 / 1050 1100 / 1100 NS Inj 1,000 ML @ 100 mls/hr IV 1000 / 1000 1000 / 1000 .CONT .Q10H [facility] Rx#:[id number] Cleocin 900 mg/NS Premix 900 mg 50 / 50 100 / 100 In 50 ml @ 100 mls/hr IV.SIG Q8H [facility] Rx#:[id number] Oral 360 / 360 Output: Urine 300 / 300 Other: # Incontinent Voids 1 # Urine Diapers 1 Narrative: Gen.: No acute distress Head: Normocephalic. Atraumatic. EENT: Pupils equal round and reactive to light. Nose without drainage. Airway intact. Throat without injection. Cardiovascular: Regular rate and rhythm. No murmurs, rubs or gallops. Respiratory: Lungs clear to auscultation bilaterally. No wheezes or rhonchi. Abdomen: Soft, nontender, nondistended. No peritoneal signs. Musculoskeletal: Left BKA. Right leg with LESS edema and erythema surrounding the foot and lower half of the limb. LESS erythema on the right side. NOT Warm to the touch. Exquisitely tender to palpation. Right foot well perfused without palpable pulses. DP pulse found with Doppler. Skin: No obvious rashes or erythema. Neuro: Sensory and motor grossly intact. Cranial nerves II through XII grossly intact. Results Procedures completed during hospitalization: NONE Completed studies during hospitalization: Laboratory Results WBC 10.1 th/mm3 (4.0-11.0) 09/27/17 07:08 RBC 4.02 mil/mm3 (4.50-5.90) L 09/27/17 07:08 Hgb 12.9 gm/dL (13.0-17.0) L 09/27/17 07:08 Hct 37.7 % (39.0-51.0) L 09/27/17 07:08 MCV 93.8 fL (80.0-100.0) 09/27/17 07:08 MCH 32.0 pg (27.0-34.0) 09/27/17 07:08 MCHC 34.2 % (32.0-36.0) 09/27/17 07:08 RDW 13.1 % (11.6-17.2) 09/27/17 07:08 Plt Count 227 th/mm3 (150-450) 09/27/17 07:08 MPV 6.6 fL (7.0-11.0) L 09/27/17 07:08 Neut % (Auto) 73.9 % (16.0-70.0) H 09/27/17 07:08 Lymph % (Auto) 13.5 % (9.0-44.0) 09/27/17 07:08 Cherry % (Auto) 7.1 % (0.0-8.0) 09/27/17 07:08 Eos % (Auto) 4.8 % (0.0-4.0) H 09/27/17 07:08 Baso % (Auto) 0.7 % (0.0-2.0) 09/27/17 07:08 Neut # (Auto) 7.5 th/mm3 (1.8-7.7) 09/27/17 07:08 Lymph # (Auto) 1.4 th/mm3 (1.0-4.8) 09/27/17 07:08 Cherry # (Auto) 0.7 th/mm3 (0.0-0.9) 09/27/17 07:08 Eos # (Auto) 0.5 th/mm3 (0.0-0.4) H 09/27/17 07:08 Baso # (Auto) 0.1 th/mm3 (0.0-0.2) 09/27/17 07:08 WBC Differential . 09/27/17 07:08 Differential Comment Auto diff final 09/27/17 07:08 PT 15.9 sec (9.8-11.6) H 09/25/17 20:53 INR 1.6 Ratio 09/25/17 20:53 APTT 53.7 sec (24.3-30.1) H 09/25/17 20:53 Sodium 142 meq/L (136-145) 09/27/17 07:08 Potassium 3.5 meq/L (3.5-5.1) 09/27/17 07:08 Chloride 108 meq/L (98-107) H 09/27/17 07:08 Carbon Dioxide 26.2 meq/L (21.0-32.0) 09/27/17 07:08 Anion Gap 8 meq/L (5-15) 09/27/17 07:08 BUN 11 mg/dL (7-18) 09/27/17 07:08 Creatinine 1.16 mg/dL (0.60-1.30) 09/27/17 07:08 Estimated GFR 63 mL/min (>89) L 09/27/17 07:08 Random Glucose 92 mg/dL (74-106) 09/27/17 07:08 Hemoglobin A1c 5.5 % (4.3-6.0) 09/26/17 13:55 Calcium 8.1 mg/dL (8.5-10.1) L 09/27/17 07:08 Phosphorus 2.8 mg/dL (2.5-4.9) 09/27/17 07:08 Magnesium 2.1 mg/dL (1.5-2.5) 09/27/17 07:08 Total Bilirubin 0.5 mg/dL (0.2-1.0) 09/27/17 07:08 AST 14 U/L (15-37) L 09/27/17 07:08 ALT 16 U/L (12-78) 09/27/17 07:08 Alkaline Phosphatase 81 U/L (45-117) 09/27/17 07:08 Total Protein 7.2 g/dL (6.4-8.2) 09/27/17 07:08 Albumin 2.7 g/dL (3.4-5.0) L 09/27/17 07:08 TSH 0.373 uIU/mL (0.358-3.740) 09/26/17 13:55 Free T4 1.15 ng/dL (0.76-1.46) 09/26/17 13:55 Urine Color Yellow (Yellw/Straw) 09/26/17 01:00 Urine Clarity Clear (Clear) 09/26/17 01:00 Urine pH 6.0 (5.0-8.5) 09/26/17 01:00 Ur Specific [place] 1.013 (1.002-1.035) 09/26/17 01:00 Urine Protein Negative mg/dL (Neg-Trace) 09/26/17 01:00 Urine Glucose (UA) Negative mg/dL (Negative) 09/26/17 01:00 Urine Ketones Negative mg/dL (Negative) 09/26/17 01:00 Urine Occult Blood Negative (Negative) 09/26/17 01:00 Urine Nitrate Negative (Negative) 09/26/17 01:00 Urine Bilirubin Negative (Negative) 09/26/17 01:00 Urine Urobilinogen Less than 2 mg/dL (Less than 2) 09/26/17 01:00 Ur Leukocyte Esterase Negative (Negative) 09/26/17 01:00 Urine RBC 1 /hpf (0-3) 09/26/17 01:00 Urine WBC 1 /hpf (0-5) 09/26/17 01:00 Urine Mucus Few /lpf (Occasional) H 09/26/17 01:00 Micro UA Comment Culture not ind 09/26/17 01:00 Urine Culture Comments Culture not ind 09/26/17 01:00 Blood Type B Positive 09/25/17 20:53 Antibody Screen Negative 09/25/17 20:53 Impressions Chest X-Ray 09/25/17 20:14 CONCLUSION: Stable appearance with mild scarring at the lung bases and no acute cardiopulmonary disease. Aorta w/Runoff CTA 09/25/17 20:18 CONCLUSION: 1. Occlusion of both common femoral arteries, superficial femoral arteries and popliteal arteries. 2. There is reconstitution of the trifurcation in the right calf. Labs on day of discharge: Labs from last 24 hours 09/27/17 09/27/17 09/26/17 07:08 07:08 13:55 WBC 10.1 RBC 4.02 L Hgb 12.9 L Hct 37.7 L MCV 93.8 MCH 32.0 MCHC 34.2 RDW 13.1 Plt Count 227 MPV 6.6 L Neut % (Auto) 73.9 H Lymph % (Auto) 13.5 Cherry % (Auto) 7.1 Eos % (Auto) 4.8 H Baso % (Auto) 0.7 Neut # (Auto) 7.5 Lymph # (Auto) 1.4 Cherry # (Auto) 0.7 Eos # (Auto) 0.5 H Baso # (Auto) 0.1 WBC Differential . Differential Comment Auto diff final Sodium 142 Potassium 3.5 Chloride 108 H Carbon Dioxide 26.2 Anion Gap 8 BUN 11 Creatinine 1.16 Estimated GFR 63 L Random Glucose 92 Hemoglobin A1c Calcium 8.1 L Phosphorus 2.8 Magnesium 2.1 Total Bilirubin 0.5 AST 14 L ALT 16 Alkaline Phosphatase 81 Total Protein 7.2 Albumin 2.7 L TSH 0.373 Free T4 09/26/17 09/26/17 13:55 13:55 WBC RBC Hgb Hct MCV MCH MCHC RDW Plt Count MPV Neut % (Auto) Lymph % (Auto) Cherry % (Auto) Eos % (Auto) Baso % (Auto) Neut # (Auto) Lymph # (Auto) Cherry # (Auto) Eos # (Auto) Baso # (Auto) WBC Differential Differential Comment Sodium Potassium Chloride Carbon Dioxide Anion Gap BUN Creatinine Estimated GFR Random Glucose Hemoglobin A1c 5.5 Calcium Phosphorus Magnesium Total Bilirubin AST ALT Alkaline Phosphatase Total Protein Albumin TSH Free T4 1.15 - Impressions ITS Impressions Chest X-Ray 09/25/17 20:14 CONCLUSION: Stable appearance with mild scarring at the lung bases and no acute cardiopulmonary disease. Aorta w/Runoff CTA 09/25/17 20:18 CONCLUSION: 1. Occlusion of both common femoral arteries, superficial femoral arteries and popliteal arteries. 2. There is reconstitution of the trifurcation in the right calf. Discharge Plan - Discharge Disposition Patient Disposition: 03 Discharge to SNF - Discharge Condition Condition: Good - Discharge Order Discharge Orders: Discharge Order (Routine); Ordered 09/27/17 Ordered By: Vinicio Berg - Discharge Details Anticipated Discharge Date: 09/27/17 Discharge Comment: DC TO SNF TODAY - Physicians Team Primary Care Provider: Shelley Mendenhall Clinical Attending Provider: Vinicio Berg Other Providers: Semaj Dumont MD ; [facility],Agency
--- NOTE | 2017-09-27 14:17 | P.PNVS ---
Subjective Subjective/Hospital Course: 09/26/2017 Referral received Patient known to me from previous encounters and surgeries Full consult to dameon Alvarado 09/27/2017 Patient with severe peripheral vascular disease previous left below-knee amputation now presents with redness of the right foot. As noted in my full consultation, patient has severe peripheral vascular disease on the right side including occlusion of common femoral superficial femoral and popliteal arteries with some reconstitution of the trifurcation distal to it and supplies obviously through the branches of the gluteal and collateral circulation. This patient is not a candidate for any vascular or endovascular reconstructive procedure based on his pathology and anatomy. At this point foot is warm and it does not appear that despite severe flow restriction and collateralization this patient has a impending limb ischemia but rather cellulitis and possible infection. Clearly this turned into osteomyelitis and gangrene then options will be very limited other than higher amputation but for the time being patient should be in the antibiotics and hopefully he will do okay. Objective Vital Signs / I&O: Vital Signs 09/26/17 16:00 09/26/17 20:00 09/26/17 23:57 Temperature 98.1 F 97.9 F 98.1 F Pulse Rate 55 L 71 72 Respiratory Rate 16 20 21 Blood Pressure 111/54 L 119/57 L 111/57 L Pulse Oximetry 92 L 89 L 88 L 09/27/17 03:56 09/27/17 07:48 09/27/17 12:00 Temperature 99.6 F 98.2 F 98.8 F Pulse Rate 74 68 65 Respiratory Rate 22 18 18 Blood Pressure 140/67 140/61 106/55 L Pulse Oximetry 91 L 94 L Intake & Output 09/26/17 09/27/17 09/27/17 18:59 06:59 18:59 Intake Total 1050 / 1050 1460 / 1460 Output Total 300 / 300 Balance 1050 / 1050 1160 / 1160 Intake: IV 1050 / 1050 1100 / 1100 NS Inj 1,000 ML @ 100 mls/hr IV 1000 / 1000 1000 / 1000 .CONT .Q10H [facility] Rx#:[id number] Cleocin 900 mg/NS Premix 900 mg 50 / 50 100 / 100 In 50 ml @ 100 mls/hr IV.SIG Q8H [facility] Rx#:[id number] Oral 360 / 360 Output: Urine 300 / 300 Other: # Incontinent Voids 1 # Urine Diapers 1 Laboratory Results - last 24 hr 09/26/17 09/26/17 09/26/17 13:55 13:55 13:55 WBC RBC Hgb Hct MCV MCH MCHC RDW Plt Count MPV Neut % (Auto) Lymph % (Auto) [place] % (Auto) Eos % (Auto) Baso % (Auto) Neut # (Auto) Lymph # (Auto) [place] # (Auto) Eos # (Auto) Baso # (Auto) WBC Differential Differential Comment Sodium Potassium Chloride Carbon Dioxide Anion Gap BUN Creatinine Estimated GFR Random Glucose Hemoglobin A1c 5.5 Calcium Phosphorus Magnesium Total Bilirubin AST ALT Alkaline Phosphatase Total Protein Albumin TSH 0.373 Free T4 1.15 09/27/17 09/27/17 07:08 07:08 WBC 10.1 RBC 4.02 L Hgb 12.9 L Hct 37.7 L MCV 93.8 MCH 32.0 MCHC 34.2 RDW 13.1 Plt Count 227 MPV 6.6 L Neut % (Auto) 73.9 H Lymph % (Auto) 13.5 [place] % (Auto) 7.1 Eos % (Auto) 4.8 H Baso % (Auto) 0.7 Neut # (Auto) 7.5 Lymph # (Auto) 1.4 [place] # (Auto) 0.7 Eos # (Auto) 0.5 H Baso # (Auto) 0.1 WBC Differential . Differential Comment Auto diff final Sodium 142 Potassium 3.5 Chloride 108 H Carbon Dioxide 26.2 Anion Gap 8 BUN 11 Creatinine 1.16 Estimated GFR 63 L Random Glucose 92 Hemoglobin A1c Calcium 8.1 L Phosphorus 2.8 Magnesium 2.1 Total Bilirubin 0.5 AST 14 L ALT 16 Alkaline Phosphatase 81 Total Protein 7.2 Albumin 2.7 L TSH Free T4 Impressions Chest X-Ray 09/25/17 20:14 CONCLUSION: Stable appearance with mild scarring at the lung bases and no acute cardiopulmonary disease. Aorta w/Runoff CTA 09/25/17 20:18 CONCLUSION: 1. Occlusion of both common femoral arteries, superficial femoral arteries and popliteal arteries. 2. There is reconstitution of the trifurcation in the right calf.
== END 2017-09-27 17:45 ==
LOC: NEPD 19:36 → NEDA 09-26 00:52 → NEPFCDU 09-26 04:02
PROVIDERS: ADMIT Hospitalist; ATTEND Hospitalist